=== PATIENT | female | born 1955 | race Caucasian/White ===

== ENCOUNTER 2023-06-09 20:26 | Inpatient (IN) | payer OTHER, SELFPAY ==
[2023-06-09 20:27] VITALS: BP 157/105; PULSE 94; RESP 18; TEMP 36.9; O2SAT 99; BMI 26.4
--- NOTE | 2023-06-09 20:33 | XRR_ITS ---
PROCEDURE INFORMATION: Exam: XR Chest Exam date and time: 06/09/2023 9:00 PM Age: 68 years old Clinical indication: Shortness of breath and other: Weakness; Patient HX: SOB; Chest congestion; Weakness; Copd; Smoker TECHNIQUE: Imaging protocol: Radiologic exam of the chest. Views: 1 view. COMPARISON: CR XR chest 2V* [id number] 01/18/2018 4:38 PM FINDINGS: Lungs: Lungs are hyperinflated. Clear parenchyma. Pleural spaces: No pleural effusion. No pneumothorax. Heart/Mediastinum: Cardiac silhouette is normal in size for technique. Vasculature: Tortuous aorta without dilation. Bones/joints: Prominent thoracic levoscoliosis. Old healed left-sided rib fractures. XR/XR chest 1V portable [id number] IMPRESSION: Hyperinflated but clear lungs. No other acute cardiopulmonary abnormality.
--- NOTE | 2023-06-09 20:33 | XRR_ITS ---
PROCEDURE INFORMATION: Exam: XR Abdomen Exam date and time: 06/09/2023 8:58 PM Age: 68 years old Clinical indication: Abdominal pain; Prior surgery; Surgery date: 6+ months; Surgery type: Hysterectomy; Patient HX: Epigastric pain; Constipation TECHNIQUE: Imaging protocol: Radiologic exam of the abdomen. Views: Frontal supine view of the abdomen. 1 View. COMPARISON: CR XR chest 2V* [id number] 01/18/2018 4:38 PM FINDINGS: Gastrointestinal tract: Gas noted in nondilated large and small bowel. No significant fecal retention appreciated. Bones/joints: Thoracolumbar junction levoscoliosis. No abnormal calcifications. XR/XR abdomen 1V* [id number] IMPRESSION: Nonobstructive bowel gas pattern. Gas in nondilated large and small bowel could be within normal limits for age, but ileus is not excluded.
--- NOTE | 2023-06-09 20:35 | W.ED.WEAKNES ---
HPI - Weakness General: Chief complaint: Weakness Stated complaint: WEAKNESS Time Seen by Provider: 06/09/23 20:28 History of Present Illness: Patient presents to the ER with complaints of being unable to eat and is sick all over and think she is dehydrated. Patient says she cracked a rib back in April and since has went downhill. Patient states she is constipated she thinks. Patient also states she has some GERD and feels like she needs to throw up at times but but has not. Review of Systems General: Reports: 10 or more systems reviewed and unremarkable except in HPI and below Physical Exam Const: COMMON NORMALS: no acute distress, average body habitus, patient oriented x3, no limitations, healthy appearing, alert and well nourished HENMT: COMMON NORMALS: normocephalic, atraumatic, hearing grossly normal bilaterally, external ears normal, Normal external nose present and moist oral mucous membranes HEAD & SCALP: normocephalic and atraumatic NOSE: Normal external nose present EXTERNAL EAR: Yes external ears normal Eye: COMMON NORMALS: Equal, round and reactive pupils present, EOMs intact bilaterally, conjunctivae normal and no scleral icterus CONJUNCTIVA: Yes conjunctivae normal PUPIL: Yes Equal, round and reactive pupils present Neck/C-Spine: COMMON NORMALS: full ROM, no lymphadenopathy, supple, no meningeal signs, no JVD and Thyroid normal THYROID: Thyroid normal Chest: COMMONS NORMALS: normal inspection of the chest and normal palpation of entire chest wall Resp: COMMON NORMALS: normal respiratory effort, No retractions, No use of accessory muscles and clear to auscultation bilaterally AUSCULTATION: clear to auscultation bilaterally Cardio: COMMON NORMALS: no JVD, regular rate, regular rhythm, S1 normal heart sound present, S2 normal heart sound present, No gallops present (Cardio), No clicks present (Cardio), No murmurs present (Cardio) and No rub (Cardio) RATE: regular rate RHYTHM: regular rhythm HEART SOUNDS: S1 normal heart sound present and S2 normal heart sound present GI: COMMON NORMALS: Normal to inspection, nondistended, normoactive bowel sounds present, Soft to palpation, non-tender, No hepatosplenomegaly present and no masses PALPATION: Yes Soft to palpation and Yes No hepatosplenomegaly present : COMMON NORMALS: Yes no CVA tenderness BLADDER/KIDNEY EXAM: Yes no CVA tenderness Back/Pelvis: COMMON NORMALS: no CVA tenderness Neuro: COMMON NORMALS: patient oriented x3 SENSORIUM/ORIENTATION: Yes alert MENINGEAL SIGNS: Yes no meningeal signs Course Vital Signs: Vital signs: Vital Signs Temperature 98.5 F 06/09/23 20:27 Pulse Rate 94 06/09/23 20:27 Respiratory Rate 18 06/09/23 20:27 Blood Pressure 157/105 06/09/23 20:27 Pulse Oximetry 99 06/09/23 20:27 Oxygen Delivery Me thod Room Air 06/09/23 20:27 MDM - Weakness Medical Decision Making Presents to the ER with complaints of generalized weakness. Patient states she been going downhill for months. Patient had lab work performed which showed her sodium of 123. Abdominal x-ray was nonspecific as well as a chest x-ray was negative. Dr. Jj was consulted who agreed to place the patient on MedSurg for further evaluation and treatment. Differential Diagnosis Unlikely acute myocardial infarction, anemia, hypoglycemia, hypothyroidism, rhabdomyolysis, sepsis or dehydration Medical Records I reviewed the patient's medical records. Lab Data I reviewed the patient's lab results. 06/09/23 20:54 06/09/23 20:54 Radiology Impressions Abdomen X-Ray 06/09/23 20:33 IMPRESSION: Nonobstructive bowel gas pattern. Gas in nondilated large and small bowel could be within normal limits for age, but ileus is not excluded. Chest X-Ray 06/09/23 20:33 IMPRESSION: Hyperinflated but clear lungs. No other acute cardiopulmonary abnormality. Laboratory Results WBC 9.77 10^3/uL (3.29-11.43) 06/09/23 20:54 RBC 4.34 10^6/uL (3.85-5.65) 06/09/23 20:54 Hgb 13.40 g/dL (11.27-16.99) 06/09/23 20:54 Hct 38.9 % (36-47) 06/09/23 20:54 MCV 89.6 fl (85-98) 06/09/23 20:54 MCH 30.9 pg (27-33) 06/09/23 20:54 MCHC 34.4 g/dL (30-55) 06/09/23 20:54 RDW 12.2 % (12.1-15.1) 06/09/23 20:54 Plt Count 275 10^3/cmm (157-399) 06/09/23 20:54 MPV 8.7 fL (7.4-10.4) 06/09/23 20:54 Neut % (Auto) 76.0 % 06/09/23 20:54 Lymph % (Auto) 15.1 % 06/09/23 20:54 Mills % (Auto) 7.8 % 06/09/23 20:54 Eos % (Auto) 0.3 % 06/09/23 20:54 Baso % (Auto) 0.6 % 06/09/23 20:54 Neut # (Auto) 7.42 10^3/uL (1.8-7.7) 06/09/23 20:54 Lymph # (Auto) 1.5 10^3/uL (0.8-4.8) 06/09/23 20:54 Mills # (Auto) 0.8 10^3/uL (0.2-0.9) 06/09/23 20:54 Eos # (Auto) 0.0 10^3/uL (0.0-0.8) 06/09/23 20:54 Baso # (Auto) 0.1 10^3/uL (0.0-0.1) 06/09/23 20:54 Nucleated RBC % (auto) 0 % 06/09/23 20:54 Nucleated RBCs # 0.0 /100WBC 06/09/23 20:54 Sodium 123 mmol/L (136-145) L 06/09/23 20:54 Potassium 3.9 mmol/L (3.5-5.1) 06/09/23 20:54 Chloride 89 mmol/L (98-107) L 06/09/23 20:54 Carbon Dioxide 24 mmol/L (22-29) 06/09/23 20:54 Anion Gap 13.9 (5-19) 06/09/23 20:54 BUN 6 mg/dL (8-23) L 06/09/23 20:54 Creatinine 0.6 mg/dL (0.5-0.9) 06/09/23 20:54 GFR Calculation 98.8 mL/min (90-130) 06/09/23 20:54 Glucose 104 mg/dL (65-115) 06/09/23 20:54 POC Glucose 118 mg/dL (70-110) H 06/09/23 20:38 Calculated Osmolality 254 mOsm/kg (285-295) L 06/09/23 20:54 Calcium 9.2 mg/dL (8.5-10.5) 06/09/23 20:54 Magnesium 1.9 mg/dL (1.7-2.3) 06/09/23 20:54 Total Bilirubin 0.5 mg/dL (0.15-1.2) 06/09/23 20:54 AST 18 U/L (0-32) 06/09/23 20:54 ALT 14 U/L (0-33) 06/09/23 20:54 Alkaline Phosphatase 91 U/L (35-105) 06/09/23 20:54 Total Protein 6.8 g/dL (6.6-8.7) 06/09/23 20:54 Albumin 4.2 g/dL (3.5-5.2) 06/09/23 20:54 Globulin 2.6 g/dL (1.3-4.6) 06/09/23 20:54 Urine Color Yellow (Yellow) 06/09/23 21:19 Urine Appearance Clear (CLEAR) 06/09/23 21:19 Urine pH 7 (5-7) 06/09/23 21:19 Ur Specific [place] 1.010 (1.005-1.030) 06/09/23 21:19 Urine Protein Neg (Negative) 06/09/23 21:19 Urine Glucose (UA) Norm (Normal) 06/09/23 21:19 Urine Ketones 1+ (Negative) H 06/09/23 21:19 Urine Blood Trace (Negative) H 06/09/23 21:19 Urine Nitrate Negative (Negative) 06/09/23 21:19 Urine Bilirubin Neg (Negative) 06/09/23 21:19 Urine Urobilinogen Neg mg/dL (Negative) 06/09/23 21:19 Ur Leukocyte Esterase Negative (Negative) 06/09/23 21:19 Urine RBC Rare /hpf (0-2) 06/09/23 21:19 Urine WBC None /hpf (0-5) 06/09/23 21:19 Ur Squamous Epith Cells None /hpf (0-5) 06/09/23 21:19 Amorphous Sediment Not Reportable 06/09/23 21:19 Urine Bacteria None /hpf (NONE) 06/09/23 21:19 All radiology interpretation(s) finalized by discharge EKG Data EKG 1: I personally reviewed and interpreted this EKG as follows: EKG interpretation date: 06/09/23 EKG interpretation time: 20:41 Prior EKG tracings: not available for review Interpretation: EKG shows ventricular rate 86 beats a minute, ID interval 185, QRS duration 98, QTc of 389, sinus rhythm, incomplete right bundle branch block, left anterior fascicular block, Discharge Plan Discharge Patient Disposition: Admitted As Inpatient Clinical Impression: Acute hyponatremia Condition: Stable Referrals: [facility] [Family Provider] - Coding Level of Care Code ED Assistant Professor Of Dietetics for Toni Noriega
--- NOTE | 2023-06-09 20:41 | ECG_ITS ---
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 Measurements Intervals [place] Rate: 86 P: 73 WI: 185 QRS: -72 QRSD: 98 T: 71 QT: 346 QTc: 415 Interpretive Statements SINUS RHYTHM INCOMPLETE RIGHT BUNDLE BRANCH BLOCK [90+ ms QRS DURATION, TERMINAL R IN V1/V2, 40+ ms S IN I/aVL/V4/V5/V6] LEFT ANTERIOR FASCICULAR BLOCK [QRS AXIS <= -45, QR IN I, RS IN II] MINIMAL VOLTAGE CRITERIA FOR LVH, CONSIDER NORMAL VARIANT [MEETS CRITERIA IN ONE OF: R(aVL), S(V1), R(V5), R(V5/V6)+S(V1)] POSSIBLE ANTERIOR MYOCARDIAL INFARCTION , OF INDETERMINATE AGE [30 ms Q WAVE IN V3/V4, OR R < 0.2 mV IN V4] Compared to ECG 01/18/2018 15:53:59 Myocardial infarct finding now present Electronically Signed On 06-10-2023 22:53:20 CDT by Tong Coffey M.D. [id number]
[2023-06-09 20:42] LABS: Glucose Point of Care 118 mg/dL (70-110)
[2023-06-09 21:06] LABS: Basophils # 0.1 10^3/uL (0.0-0.1); Basophils % 0.6 %; Eosinophils % 0.3 %; Hematocrit 38.9 % (36-47); Lymphocytes # 1.5 10^3/uL (0.8-4.8); Lymphocytes % 15.1 %; Mean Corpuscular HGB Conc 34.4 g/dL (30-55); Mean Corpuscular Hemoglobin 30.9 pg (27-33); Mean Corpuscular Volume 89.6 fl (85-98); Mean Platelet Volume 8.7 fL (7.4-10.4); Monocytes # 0.8 10^3/uL (0.2-0.9); Monocytes % 7.8 %; Neutrophils # 7.42 10^3/uL (1.8-7.7); Nucleated Red Blood Cells % 0 %; Platelet Count 275 10^3/cmm (157-399); Red Blood Count 4.34 10^6/uL (3.85-5.65); Red Cell Distribution Width 12.2 % (12.1-15.1); White Blood Count 9.77 10^3/uL (3.29-11.43)
[2023-06-09 21:09] VITALS: BP 158/94; PULSE 90; RESP 16; O2SAT 98
[2023-06-09] MEDS: sodium chloride 0.9% 1,000 ML 999 ML IV (21:09)
[2023-06-09 21:26] LABS: Alanine Aminotransferase 14 U/L (0-33); Albumin Level 4.2 g/dL (3.5-5.2); Alkaline Phosphatase 91 U/L (35-105); Anion Gap 13.9 (5-19); Aspartate Amino Transferase 18 U/L (0-32); Blood Urea Nitrogen 6 mg/dL (8-23); Calcium 9.2 mg/dL (8.5-10.5); Carbon Dioxide 24 mmol/L (22-29); Chloride 89 mmol/L (98-107); Creatinine Clr Calc Pharmacy 55.8651; Globulin 2.6 g/dL (1.3-4.6); Glomerular Filtration Rate 98.8 mL/min (90-130); Glucose 104 mg/dL (65-115); Magnesium 1.9 mg/dL (1.7-2.3); Osmolality Calculated 254 mOsm/kg (285-295); Potassium 3.9 mmol/L (3.5-5.1); Sodium 123 mmol/L (136-145); Total Bilirubin 0.5 mg/dL (0.15-1.2); Total Protein 6.8 g/dL (6.6-8.7)
[2023-06-09 21:39] VITALS: BP 157/82; PULSE 86; RESP 18; O2SAT 100
[2023-06-09 21:39] LABS: Add Urine Microscopic? YES; Bilirubin Urine Neg (Negative); Blood Urine Trace (Negative); Glucose Urine UA Norm (Normal); Ketones Urine 1+ (Negative); Leukocyte Esterase Urine Negative (Negative); Nitrate Urine Negative (Negative); Protein Urine Neg (Negative); RBC Urine RARE /hpf (0-2); Urine Appearance Clear (CLEAR); Urine Color Yellow (Yellow); Urobilinogen Urine Neg (Negative); pH Urine 7 (5-7)
[2023-06-09 21:40] LABS: Add Urine Culture? No
[2023-06-09 22:39] VITALS: BP 141/77; PULSE 91; RESP 16; O2SAT 99
[2023-06-10] VITALS (10 sets, daily range): BP systolic 104–163; BP diastolic 56–83; PULSE 67–85; RESP 15–19; TEMP 36.3–36.7; O2SAT 96–98
--- NOTE | 2023-06-10 00:50 | P.HP_ITS ---
Providers/Chief Complaint Admitting Physician: Eric Chino MD Chief Complaint: WEAKNESS History of Present Illness Geno Dimas is a 68 year old female with no significant past medical history, who presents to [facility] due to fatigue, malaise, nausea, feeling unwell, abdominal pain, lightheadedness, confusion. Currently patient is alert to person, to place, not to time she can follow commands, her complaint is just feeling sick she tells me, she feels sick all over her feet she feels nauseous, she feels dizzy, she is having abdominal pain, fatigue, malaise. She denies any dysuria, no hematuria. Denies any diarrhea. She does report poor appetite for the last few days. She reports feeling confused, not feeling her usual self, feeling weak all over, no chest pain, no cardiovascular history, no history of COPD, no history of smoking, no dysuria, no hematuria, patient gets most questions appropriately, but does have episodes of confusion, her response times are quite delayed, she denies any headaches, no blurry vision, Review of Systems Const: Reports: chills, body aches, fatigue and malaise; Denies: fever(s) Eyes: Denies: change in vision Card: Denies: chest pain Resp: Denies: dyspnea GI: Reports: abdominal pain and nausea; Denies: hematochezia : Denies: flank pain, difficulty voiding, dysuria or urinary frequency Musc: Denies: neck pain or back pain Skin/Breast: Denies: rash Neuro: Reports: dizziness and confusion; Denies: headache(s), numbness in extremities, weakness in extremities, Slurred speech present, difficulty communicating thoughts or involuntary movements Psych: Denies: anxiety Endo: Denies: polyuria or polydipsia Medications/Allergies Home Medications Medication Instructions Recorded Confirmed Last Taken Type No Known Home Medications 06/10/23 06/10/23 Unknown History Allergies Allergy/AdvReac Type Severity Reaction Status Date / Time bupropion [From Wellbutrin] Allergy ADR-Irritab Verified 06/09/23 20:42 le nitrofurantoin Allergy ADR-Gastrointestinal Verified 06/09/23 20:42 [From Macrodantin] Upset tetracycline Allergy Unknown Verified 06/09/23 20:42 PFSH Acute PFSH: Medical History (Updated 06/10/23 @ 00:55 by Eric Chino MD) No pertinent past medical history Surgical History (Updated 06/10/23 @ 00:53 by Eric Chino MD) History of appendectomy History of hysterectomy Family History (Updated 06/10/23 @ 00:53 by Eric Chino MD) Other No pertinent family history Social History (Updated 06/10/23 @ 00:53 by Eric Chino MD) Smoking and tobacco status: never smoked Alcohol intake: never Substance/Drug Use: never Vitals/I&O/Wt Last Vital Signs Temp 98.5 F 06/09/23 20:27 Pulse 71 06/10/23 00:05 Resp 18 06/10/23 00:05 BP 163/82 06/10/23 00:05 Pulse Ox 98 06/10/23 00:05 O2 Del Method Room Air 06/10/23 00:23 06/09/23 06/09/23 06/10/23 14:59 22:59 06:59 Intake Total 1000 / 1000 Balance 1000 / 1000 Weight last 48 hrs Weight 63.503 kg Physical Exam Const: COMMON NORMALS: no acute distress GENERAL APPEARANCE: cooperative, well kempt and well developed ORIENTATION/CONSCIOUSNESS: Yes awake, Yes oriented to person, Yes oriented to place and Yes confused; not oriented to time HENMT: COMMON NORMALS: normocephalic and Normal external nose present HEAD & SCALP: normocephalic FACE & SINUS: normal facial exam NOSE: Normal external nose present Eye: COMMON NORMALS: Equal, round and reactive pupils present, EOMs intact bilaterally, conjunctivae normal and no scleral icterus CONJUNCTIVA: Yes conjunctivae normal PUPIL: Yes Equal, round and reactive pupils present Neck/C-Spine: COMMON NORMALS: full ROM, no lymphadenopathy, no meningeal signs and no JVD Lymph: LYMPHATIC: no lymphadenopathy noted Chest: COMMONS NORMALS: normal inspection of the chest Resp: COMMON NORMALS: normal respiratory effort, No retractions, No use of accessory muscles and clear to auscultation bilaterally AUSCULTATION: clear to auscultation bilaterally Cardio: COMMON NORMALS: regular rate, regular rhythm, S1 normal heart sound present, S2 normal heart sound present, No murmurs present (Cardio) and Peripheral pulses 2+ throughout RATE: regular rate RHYTHM: regular rhythm HEART SOUNDS: S1 normal heart sound present and S2 normal heart sound present PERIPHERAL PULSES: Peripheral pulses 2+ throughout GI: COMMON NORMALS: Normal to inspection, nondistended, normoactive bowel sounds present, Soft to palpation and non-tender : BLADDER/KIDNEY EXAM: Yes no CVA tenderness Back/Pelvis: COMMON NORMALS: no CVA tenderness Extremity: COMMON NORMALS: no calf tenderness and no pedal edema Neuro: COMMON NORMALS: CN's II-XII intact bilaterally, moves all extremities, no focal motor deficits and no sensory deficits noted MENINGEAL SIGNS: Yes no meningeal signs Psych: COMMON NORMALS: mental status grossly normal, cooperative and speech normal SPEECH: Yes normal speech THOUGHT PROCESS: Normal thought process present Skin: COMMON NORMALS: turgor normal and no jaundice GENERAL SKIN EXAM: turgor normal Data 06/09/23 20:54 06/09/23 20:54 A&P Assessment and plan (1) Acute hyponatremia: (2) Acute encephalopathy: (3) Generalized weakness: (4) Fatigue: (5) Nausea: Plan Acute hyponatremia -Likely secondary to poor appetite, dehydration -Recheck serum sodium levels at 4 AM -IV fluids Generalized weakness, fatigue, malaise, feeling sick -Etiology unclear -Order inflammatory markers Nausea, vomiting, abdominal discomfort -CT scan abdomen pelvis, lipase, inflammatory markers Acute encephalopathy -Low second hyponatremia, will do CT of the head We will have to call the [facility] tomorrow, for a list of patient's medications, Full code Overnight for DVT prophylaxis Attestations Medical Necessity Statement*: Patient requires hospitalization, outpatient with observation, for hyponatremia, encephalopathy, generalized weakness, fatigue, malaise, nausea Diagnoses Acute hyponatremia E87.1 Acute encephalopathy G93.40 Generalized weakness R53.1 Fatigue R53.83 Nausea R11.0
--- NOTE | 2023-06-10 01:02 | CTR_ITS ---
PROCEDURE INFORMATION: Exam: CT Abdomen And Pelvis Without Contrast Exam date and time: 06/10/2023 2:37 AM Age: 68 years old Clinical indication: Nausea and vomiting; Prior surgery; Surgery date: 6+ months; Surgery type: Appy. Hysterectomy; Patient HX: General weakness with n/v and loss of appetite. ; Additional info: N/v/poor appeptite TECHNIQUE: Imaging protocol: Computed tomography of the abdomen and pelvis without contrast. Radiation optimization: All CT scans at this facility use at least one of these dose optimization techniques: automated exposure control; mA and/or kV adjustment per patient size (includes targeted exams where dose is matched to clinical indication); or iterative reconstruction. REPORTING DATA: Count of CT and Cardiac NM exams in prior 12 months: This patient has received 0 known CTs and 0 known cardiac nuclear medicine studies in the 12 months prior to the current study. COMPARISON: CR XR abdomen 1V* [id number] 06/09/2023 8:58 PM RADIATION DOSE METRICS: Total DLP (mGy-cm): 309.62 FINDINGS: Lungs: Left lower lobe volume loss and opacification suggests severe atelectasis. Pleural spaces: No pleural fluid or pneumothorax. Heart: Heart size is normal. Liver: Normal configuration. Homogeneous parenchyma. Gallbladder and bile ducts: No regional inflammation. No calcified stones. No ductal dilation. Pancreas: No pancreatic edema. No obvious pancreatic mass, but sensitivity is limited without intravenous contrast. Spleen: Normal size spleen with scattered calcifications. Adrenal glands: 3.6 x 3.0 cm solid left adrenal mass demonstrates attenuation coefficient 30 Hounsfield units. Kidneys and ureters: On this noncontrast exam, interpretation of renal parenchyma is challenging. There is a solid appearing exophytic nodule arising from the left kidney measuring 2.3 cm in diameter. Renal contours are otherwise within normal limits. Stomach and bowel: Postprandial stomach. Normal caliber small bowel. Distal colonic diverticulosis without evidence of acute diverticulitis. Appendix: Appendix is not visualized as a discrete structure but there is no inflammation at the cecal base. Intraperitoneal space: No free air. No significant fluid collection. Vasculature: Moderate aortoiliac calcific atherosclerosis without aneurysm. Lymph nodes: No enlarged lymph nodes. Urinary bladder: Unremarkable as visualized. Reproductive: Prior hysterectomy. No evidence of vaginal cuff or adnexal mass. Bones/joints: Severe subjective bony demineralization. Old healed left-sided rib fractures are noted. There are multiple chronic appearing superior endplate deformities throughout the visualized spine compatible with osteoporotic insufficiency fractures. No acute fracture is evident. No destructive bony lesions are appreciated. Soft tissues: Bilateral breast prostheses are noted. CT/CT abdomen pelvis wo con [id number] IMPRESSION: 1. Overall exam sensitivity is limited without intravenous contrast. There is a suspicious exophytic nodule in the upper pole of the left kidney which may be renal cell carcinoma. There is also a left adrenal mass. If patient's renal function is not adequate for investigation with intravenous contrast, ultrasound may be helpful in this thin patient. 2. Severe left lower lobe atelectasis was not appreciated on plain film. In this patient with emphysema, possibility of left hilar mass cannot be entirely excluded. Contrast enhanced chest CT would be helpful for further evaluation if clinical scenario is unresolved.
--- NOTE | 2023-06-10 01:02 | CTR_ITS ---
PROCEDURE INFORMATION: Exam: CT Head Without Contrast Exam date and time: 06/10/2023 2:35 AM Age: 68 years old Clinical indication: Other: General weakness; Additional info: Encephalopatrhy TECHNIQUE: Imaging protocol: Computed tomography of the head without contrast. Radiation optimization: All CT scans at this facility use at least one of these dose optimization techniques: automated exposure control; mA and/or kV adjustment per patient size (includes targeted exams where dose is matched to clinical indication); or iterative reconstruction. REPORTING DATA: Count of CT and Cardiac NM exams in prior 12 months: This patient has received 0 known CTs and 0 known cardiac nuclear medicine studies in the 12 months prior to the current study. COMPARISON: No relevant prior studies available. RADIATION DOSE METRICS: Total DLP (mGy-cm): 1021.73 FINDINGS: Brain: Multiple circumscribed low-density masses are seen throughout the brain. Reference lesion in the right thalamus measures 1.3 cm in diameter. There are prominent lesions in the left thalamus, left parietal lobe white matter, left frontal lobe, and a bilobed lesion in the left posterior frontal lobe. Additional much smaller lesions are scattered throughout. No intraparenchymal or extra-axial hemorrhage. No midline shift. No significant edema surrounding any of the focal lesions. Cerebral ventricles: No ventriculomegaly. Paranasal sinuses: Mucosal thickening noted in the ethmoid air cells. Visualized paranasal sinuses are otherwise clear. Mastoid air cells: Visualized mastoid air cells are well aerated. Bones/joints: Unremarkable. No acute fracture. Soft tissues: Unremarkable. CT/CT head wo con* [id number] IMPRESSION: There are multiple low-attenuation lesions throughout the brain. Differential diagnosis includes metastatic disease or disseminated infection. There is no significant edema surrounding any of the lesions, and there is no evidence of hemorrhage or herniation. Contrast enhanced brain MR is recommended for further characterization.
[2023-06-10] MEDS: sodium chloride 0.9% 1,000 ML 75 ML IV ×2 (01:24→15:10)
[2023-06-10] MEDS: enoxaparin 40 mg/0.4 mL Syringe SUBCUT (01:25)
[2023-06-10] MEDS: pantoprazole 40 mg SDV IVP (01:25)
[2023-06-10 02:11] LABS: Troponin(5th) Baseline 11 ng/L (0-10)
--- NOTE | 2023-06-10 03:09 | ECG_ITS ---
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 Measurements Intervals [place] Rate: 84 P: 63 NV: 184 QRS: -65 QRSD: 96 T: 51 QT: 350 QTc: 416 Interpretive Statements SINUS RHYTHM LEFT AXIS DEVIATION [QRS AXIS < -30] PATTERN CONSISTENT WITH PULMONARY DISEASE INCOMPLETE RIGHT BUNDLE BRANCH BLOCK [90+ ms QRS DURATION, TERMINAL R IN V1/V2, 40+ ms S IN I/aVL/V4/V5/V6] POSSIBLE SEPTAL MYOCARDIAL INFARCTION , OF INDETERMINATE AGE [30 ms Q WAVE IN V1/V2] MODERATE T-WAVE ABNORMALITY, CONSIDER ANTERIOR ISCHEMIA [-0.1+ mV T-WAVE IN V3/V4] Compared to ECG 06/09/2023 20:41:13 Left-axis deviation now present T-wave abnormality now present Possible ischemia now present Left anterior fascicular block no longer present Myocardial infarct finding still present Electronically Signed On 06-10-2023 22:58:23 CDT by Tong Coffey M.D. [id number]
[2023-06-10 03:24] LABS: Erythrocyte Sedimentation Rate 7 mm/hr (0-15)
[2023-06-10 03:43] LABS: Blood Urea Nitrogen 5 mg/dL (8-23); Calcium 8.8 mg/dL (8.5-10.5); Carbon Dioxide 21 mmol/L (22-29); Chloride 95 mmol/L (98-107); Creatinine Clr Calc Pharmacy 55.8651; Glucose 86 mg/dL (65-115); Lipase 87 U/L (13-60); Osmolality Calculated 263 mOsm/kg (285-295); Sodium 128 mmol/L (136-145)
[2023-06-10 03:49] LABS: Procalcitonin 0.39 ng/mL (0-0.5)
--- NOTE | 2023-06-10 06:44 | ECG_ITS ---
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 Measurements Intervals [place] Rate: 67 P: 58 WV: 193 QRS: -71 QRSD: 104 T: 47 QT: 392 QTc: 414 Interpretive Statements SINUS RHYTHM INCOMPLETE RIGHT BUNDLE BRANCH BLOCK [90+ ms QRS DURATION, TERMINAL R IN V1/V2, 40+ ms S IN I/aVL/V4/V5/V6] LEFT ANTERIOR FASCICULAR BLOCK [QRS AXIS <= -45, QR IN I, RS IN II] POSSIBLE ANTERIOR MYOCARDIAL INFARCTION , OF INDETERMINATE AGE [30 ms Q WAVE IN V3/V4, OR R < 0.2 mV IN V4] Compared to ECG 06/10/2023 03:09:52 Left anterior fascicular block now present Left-axis deviation no longer present T-wave abnormality no longer present Possible ischemia no longer present Myocardial infarct finding still present Electronically Signed On 06-10-2023 22:58:02 CDT by Tong Coffey M.D. [id number]
[2023-06-10 06:55] LABS: Troponin 5 6HR 10.34 ng/L (0-10)
[2023-06-10 07:06] LABS: Troponin 5 6HR Delta -0.66 ng/L (0-12)
[2023-06-10 12:41] LABS: Iron 38 ug/dL (37-145); Thyroid Stimulating Hormone 0.75 uIU/mL (0.27-4.20); Total Iron Binding Capacity 190 mcg/dl; Unsaturated Iron Binding 152 ug/dL (112-347)
--- NOTE | 2023-06-10 13:16 | PC.OT ---
NURSING STAFF NOTIFIED THERAPIST THAT SHE IS AWAITING TO TALK TO HER PHYSICIAN AND IS TIRED AND HAS BEEN REQUESTING TO REST. ATTEMPTED TO SEE HER AGAIN AT LUNCH BUT PATIENT HAD VISITORS. OT TO HOLD EVAL TODAY .
--- NOTE | 2023-06-10 14:29 | P.PN_ITS ---
Subjective Subjective: Admitted overnight. On examination patient seen with caregiver at bedside. Patient is awake and alert. States feeling better. Denies any nausea, vomiting, headache. States she has not seen a doctor in last 5 years. She states she thinks she broke her back around 6 weeks ago. She states she has a tendency of breaking her bones very frequently since she was a kid. Also states she thinks her sodium levels were low and even with all the natural medication which she takes at home the sodium levels were not improving so she came to the ER for weakness. Blood work appreciated for a stable CBC without leukocytosis, sodium level improving to 128, 123 on admission, chloride of 95 with a normal creatinine. Vitals/I&O/Wt Last Vital Signs Temp 98.1 F 06/10/23 12:00 Pulse 67 06/10/23 12:00 Resp 16 06/10/23 12:00 BP 122/70 06/10/23 12:00 Pulse Ox 96 06/10/23 12:00 O2 Del Method Room Air 06/10/23 12:00 06/09/23 06/10/23 06/10/23 22:59 06:59 14:59 Intake Total 1000 / 1000 240 / 240 Output Total 400 / 400 Balance 1000 / 1000 -400 / 600 240 / 240 Weight last 48 hrs Weight 63.503 kg Physical Exam Const: COMMON NORMALS: no acute distress GENERAL APPEARANCE: cooperative, well kempt and well developed ORIENTATION/CONSCIOUSNESS: Yes awake, Yes oriented to person, Yes oriented to place and Yes confused; not oriented to time HENMT: COMMON NORMALS: normocephalic and Normal external nose present HEAD & SCALP: normocephalic FACE & SINUS: normal facial exam NOSE: Normal external nose present Eye: COMMON NORMALS: Equal, round and reactive pupils present, EOMs intact bilaterally, conjunctivae normal and no scleral icterus CONJUNCTIVA: Yes conjunctivae normal PUPIL: Yes Equal, round and reactive pupils present Neck/C-Spine: COMMON NORMALS: full ROM, no lymphadenopathy, no meningeal signs and no JVD Lymph: LYMPHATIC: no lymphadenopathy noted Chest: COMMONS NORMALS: normal inspection of the chest Resp: COMMON NORMALS: normal respiratory effort, No retractions, No use of accessory muscles and clear to auscultation bilaterally AUSCULTATION: clear to auscultation bilaterally Cardio: COMMON NORMALS: no JVD, regular rate, regular rhythm, S1 normal heart sound present, S2 normal heart sound present, No murmurs present (Cardio) and Peripheral pulses 2+ throughout RATE: regular rate RHYTHM: regular rhythm HEART SOUNDS: S1 normal heart sound present and S2 normal heart sound present PERIPHERAL PULSES: Peripheral pulses 2+ throughout GI: COMMON NORMALS: Normal to inspection, nondistended, normoactive bowel sounds present, Soft to palpation and non-tender PALPATION: Yes Soft to palpation : COMMON NORMALS: Yes no CVA tenderness BLADDER/KIDNEY EXAM: Yes no CVA tenderness Back/Pelvis: COMMON NORMALS: no CVA tenderness Extremity: COMMON NORMALS: no calf tenderness and no pedal edema Neuro: COMMON NORMALS: CN's II-XII intact bilaterally, moves all extremities, no focal motor deficits and no sensory deficits noted SENSORIUM/ORIENTATION: Yes oriented to person, Yes oriented to place and No oriented to time MENINGEAL SIGNS: Yes no meningeal signs Psych: COMMON NORMALS: mental status grossly normal, Normal thought process present, cooperative and speech normal APPEARANCE: Yes well kempt SPEECH: Yes normal speech THOUGHT PROCESS: Normal thought process present Skin: COMMON NORMALS: turgor normal and no jaundice GENERAL SKIN EXAM: turgor normal Data 06/09/23 20:54 06/10/23 02:54 A&P Assessment and plan (1) Acute hyponatremia: (2) Acute encephalopathy: (3) Generalized weakness: (4) Fatigue: (5) Nausea: Plan Acute hyponatremia: Do not have baseline. Seems to be improving. Up to 128. -Likely secondary to poor appetite, dehydration Continue with normal saline 75 cc/h. Recheck sodium level in afternoon and then in AM. Monitor for overcorrection. Generalized weakness, fatigue, malaise, feeling sick: Acute encephalopathy: Resolving. Most likely in setting of acute hyponatremia. Cannot rule out in setting of possible malignancy. Respiratory viral panel pending. Check TSH, vitamin B12, folate levels, TIBC. Nausea/vomiting/abdominal discomfort: Appreciate CT abdomen pelvis results. No concerns for small bowel obstruction, pancreatitis, negative for liver patho logy. Does complain of constipation. Start on bowel regimen with senna Colace twice daily and milk of mag as needed. Left renal mass: Seen on the CT scan with concerns for exophytic mass on left upper renal pole with possible localized metastasis to adrenals. Discussed in detail with the patient. We need to follow-up with nephrology as an outpatient for possible renal biopsy. Patient would think further regarding her plans. Full code Regular diet Lovenox for DVT prophylaxis Protonix for PUD prophylaxis Attestations Medical Necessity Statement*: Requires further hospitalization for management of acute hyponatremia in setting of dehydration requiring IV fluids as patient is not able to maintain oral hydration given nausea and vomiting which seems to be resolving. Switch to inpatient Diagnoses Acute hyponatremia E87.1 Acute encephalopathy G93.40 Generalized weakness R53.1 Fatigue R53.83 Nausea R11.0
[2023-06-10 15:24] LABS: Sodium 129 mmol/L (136-145)
--- NOTE | 2023-06-10 15:32 | PC.NURSE ---
Pt refuses telemetry.
[2023-06-10] MEDS: sennosides-docusate Tablet 1 TAB PO (17:32)
[2023-06-11] MEDS: enoxaparin 40 mg/0.4 mL Syringe SUBCUT (01:41)
[2023-06-11] MEDS: pantoprazole 40 mg SDV IVP (01:41)
[2023-06-11 04:28] VITALS: BP 132/74; PULSE 82; RESP 20; TEMP 36.6; O2SAT 99
[2023-06-11] MEDS: sodium chloride 0.9% 1,000 ML 75 ML IV (05:26)
[2023-06-11 05:29] LABS: Basophils # 0.1 10^3/uL (0.0-0.1); Basophils % 0.8 %; Eosinophils # 0.1 10^3/uL (0.0-0.8); Eosinophils % 0.8 %; Hematocrit 37.7 % (36-47); Lymphocytes # 1.7 10^3/uL (0.8-4.8); Lymphocytes % 20.3 %; Mean Corpuscular HGB Conc 33.7 g/dL (30-55); Mean Corpuscular Hemoglobin 30.8 pg (27-33); Mean Corpuscular Volume 91.5 fl (85-98); Mean Platelet Volume 9.4 fL (7.4-10.4); Monocytes # 0.7 10^3/uL (0.2-0.9); Monocytes % 8.6 %; Neutrophils # 5.79 10^3/uL (1.8-7.7); Neutrophils % 69.4 %; Nucleated Red Blood Cells % 0 %; Platelet Count 227 10^3/cmm (157-399); Red Blood Count 4.12 10^6/uL (3.85-5.65); Red Cell Distribution Width 12.4 % (12.1-15.1); White Blood Count 8.36 10^3/uL (3.29-11.43)
[2023-06-11 05:49] LABS: Estmated Average Glucose 105; Hemoglobin A1C 5.3 % (4.0-6.0)
[2023-06-11 05:56] LABS: Alanine Aminotransferase 12 U/L (0-33); Albumin Level 3.8 g/dL (3.5-5.2); Alkaline Phosphatase 84 U/L (35-105); Anion Gap 11.5 (5-19); Aspartate Amino Transferase 18 U/L (0-32); Blood Urea Nitrogen 3 mg/dL (8-23); Calcium 8.8 mg/dL (8.5-10.5); Carbon Dioxide 23 mmol/L (22-29); Chloride 95 mmol/L (98-107); Globulin 2.4 g/dL (1.3-4.6); Glomerular Filtration Rate 157.8 mL/min (90-130); Glucose 103 mg/dL (65-115); Osmolality Calculated 259 mOsm/kg (285-295); Potassium 3.5 mmol/L (3.5-5.1); Sodium 126 mmol/L (136-145); Total Bilirubin 0.4 mg/dL (0.15-1.2); Total Protein 6.2 g/dL (6.6-8.7)
[2023-06-11 05:57] LABS: Cholesterol 178 mg/dL (0-200); Creatinine Clr Calc Pharmacy 55.8651; HDL Cholesterol 66 mg/dL (60-100); LDL Cholesterol Calculated 98 mg/dL (50-129); Triglycerides 72 mg/dL (0-150); VLDL Cholestrol Calculation 14 mg/dL (0-30)
[2023-06-11 06:48] LABS: Folate Level > 20.0 ng/mL (4.8-37.3)
[2023-06-11 08:00] VITALS: BP 150/76; PULSE 95; RESP 18; TEMP 36.7; O2SAT 96
[2023-06-11] MEDS: sennosides-docusate Tablet 1 TAB PO ×2 (08:55→18:05)
[2023-06-11 11:50] VITALS: PULSE 101; RESP 20; O2SAT 96
[2023-06-11 15:28] LABS: Sodium 129 mmol/L (136-145)
[2023-06-11 16:00] VITALS: BP 154/94; PULSE 83; RESP 16; TEMP 36.8; O2SAT 95
--- NOTE | 2023-06-11 17:13 | PC.OT ---
OT eval attempted . Patient is concerned about her recent abdominal CA diagnosis and concerned about the sodium levels. OT eval on hold.
[2023-06-11] MEDS: polyethylene glycol 3350 Pkt 17 gm PO (18:05)
[2023-06-11] MEDS: sodium chloride 1 gm Tablet PO (18:18)
[2023-06-11] MEDS: sodium chloride 0.9% 1,000 ML 30 ML IV (18:18)
--- NOTE | 2023-06-11 19:15 | P.PN_ITS ---
Subjective Subjective: She has not been able to eat due to forgetting her dentures, has been unable to tolerate regular consistency food. States at home had some pain in the posterior right rib cage due to that had spent time in bed, did not eat well during that time, but continue to drink water. Lives by herself. Does not have any family. Has had her neighbors check up on her occasionally, but they have been ill with COVID. Additionally has been having constipation. Vitals/I&O/Wt Last Vital Signs Temp 98.2 F 06/11/23 16:00 Pulse 83 06/11/23 16:00 Resp 16 06/11/23 16:00 BP 154/94 06/11/23 16:00 Pulse Ox 95 06/11/23 16:00 O2 Del Method Room Air 06/11/23 16:00 06/11/23 06/11/23 06/11/23 06:59 14:59 22:59 Intake Total 1000 / 2240 976.25 / 976.25 480 / 1456.25 Balance 1000 / 2240 976.25 / 976.25 480 / 1456.25 Weight last 48 hrs Weight 63.503 kg Physical Exam Const: COMMON NORMALS: alert GENERAL APPEARANCE: cooperative ORIENTATI ON/CONSCIOUSNESS: Yes awake OTHER: Anxious HENMT: COMMON NORMALS: oropharynx normal OTHER: dry MM Neck/C-Spine: COMMON NORMALS: no JVD Resp: COMMON NORMALS: normal respiratory effort and clear to auscultation bilaterally AUSCULTATION: clear to auscultation bilaterally Cardio: COMMON NORMALS: no JVD, regular rhythm, S1 normal heart sound present, S2 normal heart sound present and No murmurs present (Cardio) RHYTHM: regular rhythm HEART SOUNDS: S1 normal heart sound present and S2 normal heart sound present GI: COMMON NORMALS: Normal to inspection, nondistended, normoactive bowel sounds present, Soft to palpation and non-tender PALPATION: Yes Soft to palpation Extremity: COMMON NORMALS: no joint enlargement and no pedal edema Neuro: COMMON NORMALS: moves all extremities SENSORIUM/ORIENTATION: Yes alert Skin: COMMON NORMALS: no rashes or lesions noted GENERAL SKIN EXAM: no rash es or lesions noted OTHER: loss of skin turgor Data 06/11/23 05:05 06/11/23 14:42 A&P Assessment and plan (1) Acute hyponatremia: (2) Acute encephalopathy: (3) Generalized weakness: (4) Fatigue: (5) Nausea: Plan Acute hyponatremia: Worsening sodium today down to 126. She has had poor appetite recently although continues to drink water. Currently is feeling somewhat dry, somewhat dry mouth, loss of skin turgor. Her IV stopped functioning. New IV obtained. Resuming lower rate saline infusion. Started on NaCl by mouth as she states she normally does take more salt with her food. follow-up sodium requested. At risk of overcorrection. Generalized weakness, fatigue, malaise, feeling sick: Has been feeling generally weak. Acute encephalopathy: Resolving. Most likely in setting of acute hyponatremia. Cannot rule out in setting of possible malignancy. Respiratory viral panel has been ordered. reviewedTSH noted wnl, reviewed vitamin B12 - pending, folate levels - not low. reviewed iron studies, without iron deficiency. Nausea/vomiting/abdominal discomfort: ReviewedCT abdomen pelvis results. No concerns for small bowel obstruction, pancreatitis, negative for liver pathology. Constipation: Persists. Escalate bowel regimen, add MiraLAX. Left renal and adrenal mass: Seen on the CT scan with concerns for exophytic mass on left upper renal pole with possible localized metastasis to adrenals. Follow-up with nephrology/urology as an outpatient for possible renal biopsy. So far she is agreeable to follow-up. Discussed with case management. Additionally she states she is [facility], and also has difficulties with transportation. Full code Regular diet Lovenox for DVT prophylaxis Protonix for PUD prophylaxis Attestations Medical Necessity Statement*: Continue admission for assessment management of symptomatic hyponatremia, suspected chronic, with worsening sodium this morning. At risk of overcorrection. and High MDM includes amount and/or complexity of data reviewed/ordered [ resulted lab(s)/test(s), ordered lab(s)/test(s) and other healthcare professional discussion] and described risk of complication, morbidity or mortality of management as documented Diagnoses Acute hyponatremia E87.1 Acute encephalopathy G93.40 Generalized weakness R53.1 Fatigue R53.83 Nausea R11.0
[2023-06-11 20:24] LABS: Sodium 130 mmol/L (136-145)
[2023-06-11 20:30] VITALS: BP 153/50; PULSE 79; RESP 19; TEMP 36.6; O2SAT 96
[2023-06-12] VITALS: BP 145/77; PULSE 81; RESP 19; TEMP 36.8; O2SAT 96
[2023-06-12] MEDS: enoxaparin 40 mg/0.4 mL Syringe SUBCUT (00:16)
[2023-06-12] MEDS: pantoprazole 40 mg SDV IVP (01:16)
[2023-06-12 02:29] LABS: Vitamin B12 (Cobalamin) 803 pg/mL (200-1100)
[2023-06-12 04:06] VITALS: BP 165/91; PULSE 68; RESP 21; TEMP 36.6; O2SAT 96
[2023-06-12 06:32] LABS: Anion Gap 15.2 (5-19); Blood Urea Nitrogen 5 mg/dL (8-23); Calcium 9.1 mg/dL (8.5-10.5); Carbon Dioxide 22 mmol/L (22-29); Chloride 98 mmol/L (98-107); Creatinine Clr Calc Pharmacy 55.8651; Glomerular Filtration Rate 98.8 mL/min (90-130); Glucose 103 mg/dL (65-115); Osmolality Calculated 270 mOsm/kg (285-295); Potassium 4.2 mmol/L (3.5-5.1); Sodium 131 mmol/L (136-145)
[2023-06-12 08:00] VITALS: BP 156/84; PULSE 79; RESP 16; TEMP 36.7; O2SAT 96
[2023-06-12] MEDS: polyethylene glycol 3350 Pkt 17 gm PO (10:33)
[2023-06-12] MEDS: sennosides-docusate Tablet 1 TAB PO (10:35)
[2023-06-12] MEDS: sodium chloride 1 gm Tablet PO (10:36)
[2023-06-12 11:46] VITALS: BP 154/83; PULSE 83; RESP 17; TEMP 36.8; O2SAT 97
--- NOTE | 2023-06-12 12:06 | PM.DCS ---
Discharge Providers Date of Admission: 06/10/23 12:01 Date of Discharge: June 12, 2023 Attending Provider at Admission: Eric Chino MD Attending Provider at Discharge: Jorge Pace Diagnoses at Discharge Discharge Diagnosis (1) Acute hyponatremia: Status: Acute (2) Acute encephalopathy: Status: Acute (3) Generalized weakness: Status: Acute (4) Fatigue: Status: Acute (5) Nausea: Status: Acute Reason for Visit Reason for Visit: WEAKNESS Hospital Course Hospital Course Pleasant 68-year-old lady lost to [facility], stopped taking her medications, was admitted for additional assessment due to fatigue, malaise, nausea, feeling unwell, abdominal pain, lightheadedness, confusion, on presentation with noted hyponatremia 123, with CT head concerning for multiple low-attenuation lesions throughout the brain, possibly metastatic disease or disseminated infection on differential, although she remained afebrile, without leukocytosis, without signs of infection. Chest x-ray with hyperinflated lungs but clear, no cardiomegaly. Abdominal x-ray with nonobstructive bowel gas pattern, gas in nondilated large and small bowel could be within normal limits for age but ileus is not excluded. She had no signs of obstruction clinically. She did note she has had poor appetite recently but continue to make herself drink water. This may explain hyponatremia with reduced oral intake. She was somewhat dehydrated, received IV hydration on presentation. Subsequently resumed on regular diet, sodium chloride tablets, protein supplements. Sodium gradually increased up to 131. She did have additional imaging with CT abdomen pelvis which showed suspicious exophytic nodule of 2.3 cm in upper pole of the left kidney may be renal cell carcinoma. Additionally left adrenal mass 3.6 x [address] also noted severe left lower lobe atelectasis, possibility of left hilar mass cannot be entirely excluded. These findings can be further evaluated with contrast-enhanced MRI brain for findings on head CT, as well as contrast-enhanced CT for findings in the chest and abdomen. Please refer for additional work-up depending on her goals of care. For now she states that she intends to maintain follow-up. Home health care is requested to check up on her at home, assistance with medications, reassessment, resource assistance, transportation, among others. Physical Exam Const: COMMON NORMALS: patient oriented x3 and alert GENERAL APPEARANCE: cooperative ORIENTATION/CONSCIOUSNESS: Yes awake HENMT: COMMON NORMALS: oropharynx normal Neck/C-Spine: COMMON NORMALS: no JVD Resp: COMMON NORMALS: normal respiratory effort and clear to auscultation bilaterally AUSCULTATION: clear to auscultation bilaterally Cardio: COMMON NORMALS: no JVD, regular rhythm, S1 normal heart sound present, S2 normal heart sound present and No murmurs present (Cardio) RHYTHM: regular rhythm HEART SOUNDS: S1 normal heart sound present and S2 normal heart sound present GI: COMMON NORMALS: Normal to inspection, nondistended, normoactive bowel sounds present, Soft to palpation and non-tender PALPATION: Yes Soft to palpation Extremity: COMMON NORMALS: no joint enlargement and no pedal edema Neuro: COMMON NORMALS: patient oriented x3 and moves all extremities SENSORIUM/ORIENTATION: Yes alert Skin: COMMON NORMALS: no rashes or lesions noted GENERAL SKIN EXAM: no rashes or lesions noted Discharge Data Studies Completed and Pending Completed Studies During Hospitalization Category Date Time Status CT abdomen pelvis wo con [id number] Routine Cat Scan 06/10/23 01:[address] head wo con* [id number] Routine Cat Scan 06/10/23 01:02 Completed XR abdomen 1V* [id number] Stat Exams 06/09/23 20:33 Completed XR chest 1V portable [id number] Stat Exams 06/09/23 20:33 Completed Pending at discharge Category Date Time Status Basic Metabolic Panel AM LABS Lab 06/13/23 04:00 Ordered Basic Metabolic Panel AM LABS Lab 06/14/23 04:00 Ordered MAG [Magnesium] AM LABS Lab 06/13/23 04:00 Ordered Respiratory Panel 2 Routine Lab 06/10/23 01:36 Ordered Radiology Impressions Abdomen X-Ray 06/09/23 20:33 IMPRESSION: Nonobstructive bowel gas pattern. Gas in nondilated large and small bowel could be within normal limits for age, but ileus is not excluded. Chest X-Ray 06/09/23 20:33 IMPRESSION: Hyperinflated but clear lungs. No other acute cardiopulmonary abnormality. Abdomen/Pelvis CT 06/10/23 01:02 IMPRESSION: 1. Overall exam sensitivity is limited without intravenous contrast. There is a suspicious exophytic nodule in the upper pole of the left kidney which may be renal cell carcinoma. There is also a left adrenal mass. If patient's renal function is not adequate for investigation with intravenous contrast, ultrasound may be helpful in this thin patient. 2. Severe left lower lobe atelectasis was not appreciated on plain film. In this patient with emphysema, possibility of left hilar mass cannot be entirely excluded. Contrast enhanced chest CT would be helpful for further evaluation if clinical scenario is unresolved. Head CT 06/10/23 01:02 IMPRESSION: There are multiple low-attenuation lesions throughout the brain. Differential diagnosis includes metastatic disease or disseminated infection. There is no significant edema surrounding any of the lesions, and there is no evidence of hemorrhage or herniation. Contrast enhanced brain MR is recommended for further characterization. Laboratory Results WBC 8.36 10^3/uL (3.29-11.43) 06/11/23 05:05 RBC 4.12 10^6/uL (3.85-5.65) 06/11/23 05:05 Hgb 12.70 g/dL (11.27-16.99) 06/11/23 05:05 Hct 37.7 % (36-47) 06/11/23 05:05 MCV 91.5 fl (85-98) 06/11/23 05:05 MCH 30.8 pg (27-33) 06/11/23 05:05 MCHC 33.7 g/dL (30-55) 06/11/23 05:05 RDW 12.4 % (12.1-15.1) 06/11/23 05:05 Plt Count 227 10^3/cmm (157-399) 06/11/23 05:05 MPV 9.4 fL (7.4-10.4) 06/11/23 05:05 Neut % (Auto) 69.4 % 06/11/23 05:05 Lymph % (Auto) 20.3 % 06/11/23 05:05 [place] % (Auto) 8.6 % 06/11/23 05:05 Eos % (Auto) 0.8 % 06/11/23 05:05 Baso % (Auto) 0.8 % 06/11/23 05:05 Neut # (Auto) 5.79 10^3/uL (1.8-7.7) 06/11/23 05:05 Lymph # (Auto) 1.7 10^3/uL (0.8-4.8) 06/11/23 05:05 [place] # (Auto) 0.7 10^3/uL (0.2-0.9) 06/11/23 05:05 Eos # (Auto) 0.1 10^3/uL (0.0-0.8) 06/11/23 05:05 Baso # (Auto) 0.1 10^3/uL (0.0-0.1) 06/11/23 05:05 Nucleated RBC % (auto) 0 % 06/11/23 05:05 Nucleated RBCs # 0.0 /100WBC 06/11/23 05:05 ESR 7 mm/hr (0-15) 06/10/23 02:54 Sodium 131 mmol/L (136-145) L 06/12/23 05:41 Potassium 4.2 mmol/L (3.5-5.1) 06/12/23 05:41 Chloride 98 mmol/L (98-107) 06/12/23 05:41 Carbon Dioxide 22 mmol/L (22-29) 06/12/23 05:41 Anion Gap 15.2 (5-19) 06/12/23 05:41 BUN 5 mg/dL (8-23) L 06/12/23 05:41 Creatinine 0.6 mg/dL (0.5-0.9) 06/12/23 05:41 GFR Calculation 98.8 mL/min (90-130) 06/12/23 05:41 Glucose 103 mg/dL (65-115) 06/12/23 05:41 POC Glucose 118 mg/dL (70-110) H 06/09/23 20:38 Estimat Average Glucose 105 06/11/23 05:05 Hemoglobin A1c 5.3 % (4.0-6.0) 06/11/23 05:05 Calculated Osmolality 270 mOsm/kg (285-295) L 06/12/23 05:41 Calcium 9.1 mg/dL (8.5-10.5) 06/12/23 05:41 Magnesium 2.0 mg/dL (1.7-2.3) 06/12/23 05:41 Iron 38 ug/dL (37-145) 06/10/23 06:26 TIBC 190 mcg/dl 06/10/23 06:26 % Saturation 20.0 % (20-50) 06/10/23 06:26 Unsat Iron Binding 152 ug/dL (112-347) 06/10/23 06:26 Total Bilirubin 0.4 mg/dL (0.15-1.2) 06/11/23 05:05 AST 18 U/L (0-32) 06/11/23 05:05 ALT 12 U/L (0-33) 06/11/23 05:05 Alkaline Phosphatase 84 U/L (35-105) 06/11/23 05:05 Troponin T Baseline 11 ng/L (0-10) H 06/10/23 01:30 Troponin T 120 Minute 10.60 ng/L (0-10) H 06/10/23 02:54 Delta Troponin T -0.40 ABS# (0-10) L 06/10/23 02:54 Troponin T Hi Sens 6Hr 10.34 ng/L (0-10) H 06/10/23 06:26 Troponin T Hi Sens 6Hr Delta -0.66 ng/L (0-12) L 06/10/23 06:26 C-Reactive Protein 3.0 mg/L (0.0-4.9) 06/10/23 02:54 Total Protein 6.2 g/dL (6.6-8.7) L 06/11/23 05:05 Albumin 3.8 g/dL (3.5-5.2) 06/11/23 05:05 Globulin 2.4 g/dL (1.3-4.6) 06/11/23 05:05 Triglycerides 72 mg/dL (0-150) 06/11/23 05:05 Cholesterol 178 mg/dL (0-200) 06/11/23 05:05 LDL Cholesterol, Calc 98 mg/dL (50-129) 06/11/23 05:05 Total VLDL Cholesterol 14 mg/dL (0-30) 06/11/23 05:05 HDL Cholesterol 66 mg/dL (60-100) 06/11/23 05:05 Cholesterol/HDL Ratio 2.70 mg/dL (0.0-4.40) 06/11/23 05:05 Lipase 87 U/L (13-60) H 06/10/23 02:54 Vitamin B12 Cancelled 06/10/23 06:26 Vit B12 Status 803 pg/mL (200-1100) 06/10/23 02:54 Folate > 20.0 ng/mL (4.8-37.3) 06/11/23 05:05 Procalcitonin 0.39 ng/mL (0-0.5) 06/10/23 02:54 TSH 0.75 uIU/mL (0.27-4.20) 06/10/23 06:26 Urine Color Yellow (Yellow) 06/09/23 21:19 Urine Appearance Clear (CLEAR) 06/09/23 21:19 Urine pH 7 (5-7) 06/09/23 21:19 Ur Specific [place] 1.010 (1.005-1.030) 06/09/23 21:19 Urine Protein Neg (Negative) 06/09/23 21:19 Urine Glucose (UA) Norm (Normal) 06/09/23 21:19 Urine Ketones 1+ (Negative) H 06/09/23 21:19 Urine Blood Trace (Negative) H 06/09/23 21:19 Urine Nitrate Negative (Negative) 06/09/23 21:19 Urine Bilirubin Neg (Negative) 06/09/23 21:19 Urine Urobilinogen Neg mg/dL (Negative) 06/09/23 21:19 Ur Leukocyte Esterase Negative (Negative) 06/09/23 21:19 Urine RBC Rare /hpf (0-2) 06/09/23 21:19 Urine WBC None /hpf (0-5) 06/09/23 21:19 Ur Squamous Epith Cells None /hpf (0-5) 06/09/23 21:19 Amorphous Sediment Not Reportable 06/09/23 21:19 Urine Bacteria None /hpf (NONE) 06/09/23 21:19 Vitals Last Vital Signs Temp 98.2 F 06/12/23 11:46 Pulse 83 06/12/23 11:46 Resp 17 06/12/23 11:46 BP 154/83 06/12/23 11:46 Pulse Ox 97 06/12/23 11:46 O2 Del Method Room Air 06/12/23 11:46 Discharge Plan Discharge Patient Disposition: Home Health Service Condition: Stable Prescriptions: New polyethylene glycol 3350 17 gram Powder In Packet 17 g PO BID Qty: 180 0RF sodium chloride 1,000 mg Tablet,Soluble 1 g PO BID Qty: 30 0RF amlodipine 5 mg tablet 5 mg PO DAILY Qty: 90 0RF Discharge Orders: Discharge Order (Routine); Ordered 06/12/23 Ordered By: Jorge Pace Referrals: [facility] [Family Provider] - 4-7 days (Spoke to [facility]. They stated since patient has not been seen since 2018 the patient will have to call and get re-esablished as a new patient. ) Discharge Diet: Regular and Soft Mechanical Discharge Activity: Increase activity as tolerated Patient Instructions: Amlodipine (By mouth), Polyethylene Glycol 3350 (By mouth), Hyponatremia (GEN), Fall Prevention (GEN), Opioid Safety Activity Restrictions/Additional Instructions: Avoid forcing self to drink water especially if you are not eating much. Drink if you are thirsty. Try to increase oral intake. Add Ensure or other protein supplements to meals. Follow-up with your primary provider for reassessment of low sodium level. Follow-up with your primary provider regarding suspicious-appearing kidney left nodule 2.2 cm in size, as well as adrenal mass 3.6 x 3 cm in size. Additional assessment with contrast CT may be helpful. Alternatively possibly ultrasound. Follow-up with your primary provider also regarding atelectasis in the left lower lung, with consideration of additional CT with contrast of your chest to further assess and exclude possible mass. Continue incentive spirometer. Seek medical attention in case of any worsening or new concerning symptoms. Discharge Attestations Time Spent in Discharge Care*: greater than 30 min Quality Metrics Clinical Quality Measures [ No reported AMI, CVA or VTE this stay] Coding Level of Care Code 94624 Total time (in minutes) for Discharge: 45 Diagnoses Acute hyponatremia E87.1 Acute encephalopathy G93.40 Generalized weakness R53.1 Fatigue R53.83 Nausea R11.0
== END 2023-06-12 13:48 | disposition home or self-care (01) | DRG 641 ==
LOC: ER 23:25 → MEDSURG 06-10 02:06
PROVIDERS: Student in an Organized Health Care Education/Training Program; Admitting Provider Family Medicine; Emergency Provider Emergency Medicine; Visit Provider Internal Medicine
DX: E87.1 Hypo-osmolality and hyponatremia (principal); G93.49 Other encephalopathy; T50.916A Underdosing of multiple unspecified drugs, medicaments and biological substances, initial encounter; Z91.128 Patient's intentional underdosing of medication regimen for other reason; E86.0 Dehydration; G93.9 Disorder of brain, unspecified; N28.9 Disorder of kidney and ureter, unspecified; E27.9 Disorder of adrenal gland, unspecified; R07.81 Pleurodynia; K59.00 Constipation, unspecified
CPT/HCPCS: 36415; 36416; 70450; 71045; 74018; 74176; 80048; 80053; 80061; 81001; 82607; 82746; 82962; 83036; 83540; 83550; 83690; 83735; 84145; 84295; 84443; 84484; 85025; 85651; 86140; 93005; 96372; 97116; 97161; 97165; 99285; C9113; G0378; J1650; J7030

== ENCOUNTER 2023-06-29 10:54 | Emergency (ER) | payer OTHER, SELFPAY ==
[2023-06-29 10:54] VITALS: BP 137/101; PULSE 83; RESP 18; TEMP 36.8; O2SAT 99; BMI 20.7
--- NOTE | 2023-06-29 10:58 | ECG_ITS ---
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 Measurements Intervals [place] Rate: 85 P: 62 DC: 178 QRS: -67 QRSD: 94 T: 59 QT: 348 QTc: 415 Interpretive Statements SINUS RHYTHM INCOMPLETE RIGHT BUNDLE BRANCH BLOCK [90+ ms QRS DURATION, TERMINAL R IN V1/V2, 40+ ms S IN I/aVL/V4/V5/V6] LEFT ANTERIOR FASCICULAR BLOCK [QRS AXIS <= -45, QR IN I, RS IN II] MODERATE VOLTAGE CRITERIA FOR LVH, CONSIDER NORMAL VARIANT [MEETS CRITERIA IN ONE OF: R(aVL), S(V1), R(V5), R(V5/V6)+S(V1)] POSSIBLE ANTEROSEPTAL MYOCARDIAL INFARCTION , OF INDETERMINATE AGE [30 ms Q WAVE IN V1-V4] Compared to ECG 06/10/2023 06:57:17 No significant changes Electronically Signed On 06-29-2023 16:26:13 CDT by Mely Delgado M.D. [id number]
--- NOTE | 2023-06-29 10:58 | XR_ITS ---
WS: [id number] Exam: XR chest 1V portable [id number] Date/Time of Exam: 06/29/2023 10:59 AM Reason For Exam: dyspnea/cough Comparison 06/09/2023. The lungs are hyperinflated and clear. Heart size is normal. The mediastinum is normal in contour. Le voscoliosis of the T-spine. Chronic deformity of the LEFT chest cage with several old rib fractures. IMPRESSION: 1. Pulmonary hyperinflation. No acute cardiopulmonary finding.
--- NOTE | 2023-06-29 10:58 | CT_ITS ---
WS: [id number] CT HEAD NONCONTRAST HISTORY: AMS TECHNIQUE: Contiguous axial imaging performed through the brain in 3.0 mm imaging. Bone and soft tiss ue windows. Sagittal and coronal reformats reviewed. All CT scans at [facility] use at least one of these dose optimization techniques: automated exposure control; mA and/or kV adjustment per pa tient size (includes targeted exams where dose is matched to clinical indication); or iterative recon struction. DLP: 888.78 mGy.cm COMPARISON: 06/10/2023 Multiple scattered abnormalities are noted within the brain. There are bilateral low-attenuation thal amic lesions. The largest on the LEFT measures 1.5 cm in diameter. These lesions were also present on the prior study of 06/10/2023 but slightly increased in size. There are several low-attenuation lesio ns throughout the brain including the LEFT frontal and posterior LEFT parietal lobe. There is a small amount of surrounding edema associated with the largest lesions. There is also some increased attenu ation within several of the smaller lesions suggesting increased cellular content. Very slight increa sed attenuation in the medial RIGHT temporal lobe. There is no mass effect. No hydrocephalus. There is mild atrophy. Paranasal sinuses: As visualized are clear. Mastoid air cells: Well pneumatized. Calvarium and scalp: Skull is intact with no soft tissue edema or swelling. IMPRESSION: 1. Numerous bilateral low-attenuation lesions throughout the brain including the thalami. These lesio ns were described on 06/10/2023 and have slightly increased in size. There is edema surrounding the l argest lesions. There is also associated increased attenuation with several of the smaller lesions. D ifferential include metastatic lesions and infectious etiologies. Consider cryptococcus, cysticercosi s, TB, ACCOUNTS COLLECTOR lymphoma and toxoplasmosis. 2. No hydrocephalus. 3. Mild atrophy and small vessel ischemic disease. Notified Mihir Monsivais DO at 06/29/2023 12:18 PM.
--- NOTE | 2023-06-29 11:24 | W.ED.AMS ---
HPI - Altered Mental Status General: Chief Complaint: Altered Mental Status Stated Complaint: ams Time Seen by Provider: 06/29/23 10:57 Source: patient Mode of arrival: ambulatory History of Present Illness: 68-year-old female confused and disoriented. She has a known history of brain mets as well as hyponatremia. She was [place] [facility]. Her clinic doctor difficulty convincing her to come to the emergency room. She was having diarrhea as confusion as well as hyponatremia where she was recently hospitalized. Patient is confused and disoriented she has difficult time holding a coherent conversation she is aware of time place and person she does not understand why she is in the emergency room. complaint: altered mental status Onset (ago): day(s) Severity: severe Consistency of symptoms: Waxing and Waning Review of Systems Const: Denies: fever(s) or chills Card: Denies: chest pain Resp: Denies: dyspnea GI: Denies: abdominal pain : Denies: dysuria, urinary frequency or urinary urgency Musc: Denies: neck pain or back pain Skin/Breast: Denies: rash PFS ED PFSH: Medical History (Updated 07/05/23 @ 06:58 by Mihir Monsivais DO) Acute hyponatremia No pertinent past medical history Surgical History History of appendectomy History of hysterectomy Family History Other No pertinent family history Social History Smoking and tobacco/nicotine status: never used tobacco/nicotine Alcohol intake: never Substance/Drug Use: never Physical Exam Const: COMMON NORMALS: no acute distress GENERAL APPEARANCE: cooperative and comfortable ORIENTATION/CONSCIOUSNESS: Yes awake HENMT: COMMON NORMALS: normocephalic, atraumatic and hearing grossly normal bilaterally HEAD & SCALP: normocephalic and atraumatic Resp: COMMON NORMALS: normal respiratory effort, No retractions, No use of accessory muscles and clear to auscultation bilaterally AUSCULTATION: clear to auscultation bilaterally Cardio: COMMON NORMALS: regular rate, regular rhythm and No murmurs present (Cardio) RATE: regular rate RHYTHM: regular rhythm GI: COMMON NORMALS: Soft to palpation and No hepatosplenomegaly present AUSCULTATION: Yes normoactive bowel sounds PALPATION: Yes Soft to palpation, No Tenderness to palpation present (GI), No Guarding due to palpation present (GI) and Yes No hepatosplenomegaly present Extremity: COMMON NORMALS: normal to inspection, capillary refill normal, no clubbing, cyanosis or edema, no calf tenderness and no pedal edema Skin: COMMON NORMALS: no rashes or lesions noted GENERAL SKIN EXAM: no rashes or lesions noted Course Vital Signs: Vital signs: Vital Signs Temperature 98.3 F 06/29/23 10:54 Pulse Rate 83 06/29/23 10:54 Respiratory Rate 18 06/29/23 10:54 Blood Pressure 137/101 06/29/23 10:54 Pulse Oximetry 99 06/29/23 10:54 Oxygen Delivery Me thod Room Air 06/29/23 10:54 MDM - Altered Mental Status Medical Decision Making Labs and imaging reviewed. Patient should be admitted and discussed with the patient she is opposed to me that she wants to go home and think about whether or not she needs to be admitted at very least she says she wants to consider it for several hours before she tells us whether or not she will agree for admission. She does not have any family members available but she does have a neighbor who has DURABLE POWER OF FAST FOOD SHIFT SUPERVISOR. I recommended the patient be admitted. We consult hospitalist Dr. Chino seen the patient patient refused to be admitted he felt at this point that she is capable of making informed consent. I do not believe she understands the implications of her laboratory status or the effect of the metastasis in her brain. Patient's friend of the power of [place] attorney does not wish to make use of the power of united states attorney and wishes to allow her to go home. At this point with the power of united states attorney not willing to exercise it I do not have the ability to keep her here. Patient is choosing to leave AMA. Encouraged to return at any point if she wishes assistance. Medical Records I reviewed the patient's medical records. Lab Data I reviewed the patient's lab results. 06/29/23 11:18 06/29/23 11:18 Laboratory Results WBC 10.15 10^3/uL (3.29-11.43) 06/29/23 11:18 RBC 4.26 10^6/uL (3.85-5.65) 06/29/23 11:18 Hgb 13.20 g/dL (11.27-16.99) 06/29/23 11:18 Hct 38.5 % (36-47) 06/29/23 11:18 MCV 90.4 fl (85-98) 06/29/23 11:18 MCH 31.0 pg (27-33) 06/29/23 11:18 MCHC 34.3 g/dL (30-55) 06/29/23 11:18 RDW 12.3 % (12.1-15.1) 06/29/23 11:18 Plt Count 381 10^3/cmm (157-399) 06/29/23 11:18 MPV 8.6 fL (7.4-10.4) 06/29/23 11:18 Neut % (Auto) 81.4 % 06/29/23 11:18 Lymph % (Auto) 11.5 % 06/29/23 11:18 [place] % (Auto) 6.1 % 06/29/23 11:18 Eos % (Auto) 0.3 % 06/29/23 11:18 Baso % (Auto) 0.5 % 06/29/23 11:18 Neut # (Auto) 8.26 10^3/uL (1.8-7.7) H 06/29/23 11:18 Lymph # (Auto) 1.2 10^3/uL (0.8-4.8) 06/29/23 11:18 [place] # (Auto) 0.6 10^3/uL (0.2-0.9) 06/29/23 11:18 Eos # (Auto) 0.0 10^3/uL (0.0-0.8) 06/29/23 11:18 Baso # (Auto) 0.1 10^3/uL (0.0-0.1) 06/29/23 11:18 Nucleated RBC % (auto) 0 % 06/29/23 11:18 Nucleated RBCs # 0.0 /100WBC 06/29/23 11:18 Sodium 124 mmol/L (136-145) L 06/29/23 11:18 Potassium 3.8 mmol/L (3.5-5.1) 06/29/23 11:18 Chloride 87 mmol/L (98-107) L 06/29/23 11:18 Carbon Dioxide 24 mmol/L (22-29) 06/29/23 11:18 Anion Gap 16.8 (5-19) 06/29/23 11:18 BUN 8 mg/dL (8-23) 06/29/23 11:18 Creatinine 0.5 mg/dL (0.5-0.9) 06/29/23 11:18 GFR Calculation 122.0 mL/min (90-130) 06/29/23 11:18 Glucose 104 mg/dL (65-115) 06/29/23 11:18 Calculated Osmolality 257 mOsm/kg (285-295) L 06/29/23 11:18 Calcium 9.6 mg/dL (8.5-10.5) 06/29/23 11:18 Total Bilirubin 0.4 mg/dL (0.15-1.2) 06/29/23 11:18 AST 17 U/L (0-32) 06/29/23 11:18 ALT 13 U/L (0-33) 06/29/23 11:18 Alkaline Phosphatase 89 U/L (35-105) 06/29/23 11:18 Creatine Kinase 74 U/L (26-192) 06/29/23 11:18 Troponin T Baseline 10 ng/L (0-10) 06/29/23 11:18 Troponin T 120 Minute 11.41 ng/L (0-10) H 06/29/23 13:45 Delta Troponin T 1.41 ABS# (0-10) 06/29/23 13:45 Total Protein 6.9 g/dL (6.6-8.7) 06/29/23 11:18 Albumin 4.2 g/dL (3.5-5.2) 06/29/23 11:18 Globulin 2.7 g/dL (1.3-4.6) 06/29/23 11:18 Urine Color Yellow (Yellow) 06/29/23 12:53 Urine Appearance Clear (CLEAR) 06/29/23 12:53 Urine pH 7 (5-7) 06/29/23 12:53 Ur Specific [place] 1.005 (1.005-1.030) 06/29/23 12:53 Urine Protein Neg (Negative) 06/29/23 12:53 Urine Glucose (UA) Norm (Normal) 06/29/23 12:53 Urine Ketones 1+ (Negative) H 06/29/23 12:53 Urine Blood Neg (Negative) 06/29/23 12:53 Urine Nitrate Negative (Negative) 06/29/23 12:53 Urine Bilirubin Neg (Negative) 06/29/23 12:53 Urine Urobilinogen Norm mg/dL (Negative) 06/29/23 12:53 Ur Leukocyte Esterase Negative (Negative) 06/29/23 12:53 Urine RBC Cancelled 06/29/23 12:53 Urine WBC Cancelled 06/29/23 12:53 Ur Squamous Epith Cells Cancelled 06/29/23 12:53 Ur Transition Epith Cell Cancelled 06/29/23 12:53 Ur Renal Epithelial Cell Cancelled 06/29/23 12:53 Calcium Oxalate Crystal Cancelled 06/29/23 12:53 Uric Acid Crystals Cancelled 06/29/23 12:53 Triple Phos Crystals Cancelled 06/29/23 12:53 Other Crystals Cancelled 06/29/23 12:53 Amorphous Sediment Cancelled 06/29/23 12:53 Urine Bacteria Cancelled 06/29/23 12:53 Hyaline Casts Cancelled 06/29/23 12:53 Fine Granular Casts Cancelled 06/29/23 12:53 Coarse Granular Casts Cancelled 06/29/23 12:53 RBC Casts Cancelled 06/29/23 12:53 Other Casts Cancelled 06/29/23 12:53 Urine Mucus Cancelled 06/29/23 12:53 Urine Trichomonas Cancelled 06/29/23 12:53 Urine Yeast Cancelled 06/29/23 12:53 Urine Sperm Cancelled 06/29/23 12:53 Ur Oval Fat Bodies Cancelled 06/29/23 12:53 All radiology interpretation(s) finalized by discharge Discharge Plan Discharge Patient Disposition: Left Against Medical Advice Clinical Impression: Acute encephalopathy, Chronic hyponatremia, Altered mental status, Delirium due to general medical condition, Metastasis to brain Condition: Stable Prescriptions: No Action sodium chloride 1,000 mg Tablet,Soluble 1 g PO BID Qty: 30 0RF Rx Instructions: for 15 days (rx filled 06/12/23) amlodipine 5 mg tablet 5 mg PO DAILY Qty: 90 0RF ClearLax 17 gram/dose powder 17 g PO BID Rx Instructions: for 15 days (rx filled 06/12/23 Referrals: [place] [facility] [Primary Care Provider] - Patient Instructions: Hyponatremia (ED), Benzodiazepine Use Disorder (ED), Dementia (ED), Non-diabetic Hypoglycemia (ED), Hypoglycemia in a Person with Diabetes (ED), Concussion (ED), Alcohol Intoxication (ED), Subarachnoid Hemorrhage (GEN), Altered Mental Status (ED) Coding Level of Care Code ED Road Cutter for Toni Noriega
[2023-06-29 11:32] LABS: Basophils # 0.1 10^3/uL (0.0-0.1); Basophils % 0.5 %; Eosinophils % 0.3 %; Hematocrit 38.5 % (36-47); Lymphocytes # 1.2 10^3/uL (0.8-4.8); Lymphocytes % 11.5 %; Mean Corpuscular HGB Conc 34.3 g/dL (30-55); Mean Corpuscular Volume 90.4 fl (85-98); Mean Platelet Volume 8.6 fL (7.4-10.4); Monocytes # 0.6 10^3/uL (0.2-0.9); Monocytes % 6.1 %; Neutrophils # 8.26 10^3/uL (1.8-7.7); Neutrophils % 81.4 %; Nucleated Red Blood Cells % 0 %; Platelet Count 381 10^3/cmm (157-399); Red Blood Count 4.26 10^6/uL (3.85-5.65); Red Cell Distribution Width 12.3 % (12.1-15.1); White Blood Count 10.15 10^3/uL (3.29-11.43)
[2023-06-29 11:43] LABS: Alanine Aminotransferase 13 U/L (0-33); Albumin Level 4.2 g/dL (3.5-5.2); Alkaline Phosphatase 89 U/L (35-105); Anion Gap 16.8 (5-19); Aspartate Amino Transferase 17 U/L (0-32); Blood Urea Nitrogen 8 mg/dL (8-23); Calcium 9.6 mg/dL (8.5-10.5); Carbon Dioxide 24 mmol/L (22-29); Chloride 87 mmol/L (98-107); Creatine Phosphokinase 74 U/L (26-192); Globulin 2.7 g/dL (1.3-4.6); Glucose 104 mg/dL (65-115); Osmolality Calculated 257 mOsm/kg (285-295); Potassium 3.8 mmol/L (3.5-5.1); Sodium 124 mmol/L (136-145); Total Bilirubin 0.4 mg/dL (0.15-1.2); Total Protein 6.9 g/dL (6.6-8.7); Troponin(5th) Baseline 10 ng/L (0-10)
[2023-06-29 12:57] LABS: Charge for UA Resulting for Rev
--- NOTE | 2023-06-29 12:58 | ECG_ITS ---
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 Measurements Intervals [place] Rate: 84 P: 55 MS: 178 QRS: -71 QRSD: 96 T: 57 QT: 352 QTc: 416 Interpretive Statements SINUS RHYTHM PATTERN CONSISTENT WITH PULMONARY DISEASE INCOMPLETE RIGHT BUNDLE BRANCH BLOCK [90+ ms QRS DURATION, TERMINAL R IN V1/V2, 40+ ms S IN I/aVL/V4/V5/V6] LEFT ANTERIOR FASCICULAR BLOCK [QRS AXIS <= -45, QR IN I, RS IN II] MINIMAL VOLTAGE CRITERIA FOR LVH, CONSIDER NORMAL VARIANT [MEETS CRITERIA IN ONE OF: R(aVL), S(V1), R(V5), R(V5/V6)+S(V1)] SEPTAL MYOCARDIAL INFARCTION , OF INDETERMINATE AGE [40+ ms Q WAVE IN V1/V2] Compared to ECG 06/29/2023 11:12:35 No significant changes Electronically Signed On 06-29-2023 16:33:35 CDT by Mely Delgado M.D. [id number]
[2023-06-29] MEDS: dexamethasone 10 mg/mL INJ IVP (13:15)
[2023-06-29 13:19] LABS: Add Urine Microscopic? YES; Bilirubin Urine Neg (Negative); Blood Urine Neg (Negative); Glucose Urine UA Norm (Normal); Ketones Urine 1+ (Negative); Leukocyte Esterase Urine Negative (Negative); Nitrate Urine Negative (Negative); Protein Urine Neg (Negative); Specific Gravity, Urine 1.005 (1.005-1.030); Urine Appearance Clear (CLEAR); Urine Color Yellow (Yellow); Urobilinogen Urine Norm (Negative); pH Urine 7 (5-7)
[2023-06-29 14:12] LABS: Troponin 5 2HR 11.41 ng/L (0-10)
[2023-06-29 14:13] LABS: Troponin 5 2HR Delta 1.41 ABS# (0-10)
== END 2023-06-29 15:01 | disposition left against medical advice (07) ==
PROVIDERS: Emergency Provider Family Medicine
DX: G93.40 Encephalopathy, unspecified (principal); E87.1 Hypo-osmolality and hyponatremia; R41.82 Altered mental status, unspecified; F05 Delirium due to known physiological condition; Z53.21 Procedure and treatment not carried out due to patient leaving prior to being seen by health care provider; C79.31 Secondary malignant neoplasm of brain
CPT/HCPCS: 36415; 70450; 71045; 80053; 81003; 82550; 84484; 85025; 93005; 96374; 99285; J1100

== ENCOUNTER 2023-07-01 09:56 | Inpatient (IN) | payer OTHER, SELFPAY ==
[2023-07-01] VITALS (45 sets, daily range): BP systolic 64–182; BP diastolic 36–141; PULSE 66–152; RESP 13–35; TEMP 36.3; O2SAT 90–100; BMI 21.1
--- NOTE | 2023-07-01 10:04 | ECG_ITS ---
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 Measurements Intervals [place] Rate: 93 P: 65 HI: 173 QRS: -76 QRSD: 101 T: 77 QT: 329 QTc: 410 Interpretive Statements SINUS RHYTHM POSSIBLE LEFT ATRIAL ENLARGEMENT [-0.1mV P-WAVE IN V1/V2] INCOMPLETE RIGHT BUNDLE BRANCH BLOCK [90+ ms QRS DURATION, TERMINAL R IN V1/V2, 40+ ms S IN I/aVL/V4/V5/V6] LEFT ANTERIOR FASCICULAR BLOCK [QRS AXIS <= -45, QR IN I, RS IN II] POSSIBLE ANTERIOR MYOCARDIAL INFARCTION , OF INDETERMINATE AGE [30 ms Q WAVE IN V3/V4, OR R < 0.2 mV IN V4] Compared to ECG 06/29/2023 12:58:48 No significant changes Electronically Signed On 07-01-2023 10:15:19 CDT by Tong Coffey M.D. [id number]
--- NOTE | 2023-07-01 10:16 | XRR_ITS ---
PROCEDURE INFORMATION: Exam: XR Chest Exam date and time: 07/01/2023 10:37 AM Age: 68 years old Clinical indication: Shortness of breath; Additional info: Dyspnea TECHNIQUE: Imaging protocol: Radiologic exam of the chest. Views: 1 view. COMPARISON: CR XR chest 1V portable [id number] 06/29/2023 11:17 AM FINDINGS: Lungs: There is volume loss in the left hemithorax and relative hyperexpansion of the right lung. There is hazy opacity projecting over the left mid to lower thorax. No focal consolidation is seen on the right. Pleural spaces: The left lateral costophrenic sulcus is blunted. No pneumothorax. Heart/Mediastinum: There is leftward shift of the mediastinum similar to 06/29/2023. Cardiomediastinal contours are unremarkable. Bones/joints: There is mild broad-based convex left thoracic scoliosis. There are healed left posterolateral 5th and 6th rib fractures. XR/XR chest 1V portable [id number] IMPRESSION: 1. No change since 06/29/2023. 2. Volume loss in the left hemithorax with opacification of the left lower lung is consistent with complete left lower lobe atelectasis which was partially imaged on abdomen pelvis CT 06/10/2023.
--- NOTE | 2023-07-01 10:20 | ED_ITS ---
HPI - SOB/Dyspnea General: Chief Complaint: Shortness of Breath/Dyspnea Stated Complaint: SOB Time Seen by Provider: 07/01/23 10:15 History of Present Illness: HPI Narrative: 68-year-old female presents emergency department via EMS personnel with complaints of increased shortness of breath and chest tightness. Patient was recently seen here at this hospital for encephalopathy. She presents today with worsening shortness of breath she does continue to smoke cigarettes daily. She is in obvious acute distress with tachypnea and appears to be having significant anxiety given her increased shortness of breath. Associated symptoms: Reports chest pain Review of Systems General: Reports: 10 or more systems reviewed and unremarkable except in HPI and below Card: Reports: chest pain Resp: Reports: dyspnea and wheezing Psych: Reports: anxiety PFSH ED PFSH: Medical History (Updated 07/08/23 @ 02:18 by Rip Escamilla MD) Acute hyponatremia No pertinent past medical history Surgical History History of appendectomy History of hysterectomy Family History Other No pertinent family history Social History Smoking and tobacco/nicotine status: never used tobacco/nicotine Alcohol intake: never Substance/Drug Use: never Physical Exam Narrative: EXAM NARRATIVE: Constitutional: Patient does appear to be acutely ill, in significant distress, thin and frail. Vital signs reviewed as documented. HENMT: Normocephalic, atraumatic. Extermal ears with normal appearance without drainage. Nose without drainage, normal appearance. Mucus membranes moist. Neck is supple, No jugular venous distension, trachea is midline, no appreciable carotid bruits. No lymphadenopathy. No meningeal signs. Flexion, extension and lateral rotation is without pain. Eyes: Pupils are equal, round, reactive to light and accomidation. No scleral icterus. Extra-ocular movement are intact. Thorax is symmetrical and with equal rise and fall with respirations. Resp: Course throughout, significant expiratory wheezes, tachypnea noted. Positive for Rales throughout. Cardio: Tachycardic Positive S1, S2. No appreciable murmurs, rubs or gallops. GI: Abdominal exam reveals normal bowel sounds to all quadrants. No organomegaly. No obvious palpable masses noted. No hepatomegaly appreciated. Soft, nontender to palpation. Extremity: Extremities are non-edematous and both femoral and pedal pulses are 2+ and equal bilaterally. Moves all extremities well, sensation in all extremities. Neuro: Alert and oriented x4, person, place, time and situation. Cranial nerves II through XII are grossly intact, there is no focal neurological deficits that I can appreciate at present. Motor strength in the upper and lower extremities are equal and bilateral 5/5. Psych: Cooperative, Anxious, normal thought process, appropriate judgment. Skin: No lesions, rashes. No gross abnormalities noted. Back: Symmetrical, no obvious deformity, No CVA tenderness Course Vital Signs: Vital signs: Vital Signs Temperature 97.4 F L 07/01/23 09:58 Pulse Rate 0 L 07/02/23 02:00 Respiratory Rate 0 L 07/02/23 02:00 Blood Pressure 67/46 07/02/23 01:00 Pulse Oximetry 85 L 07/02/23 01:51 Oxygen Delivery Me thod Room Air 07/02/23 01:45 Oxygen Flow Rate 55 07/01/23 17:10 Fraction of Inspir ed Oxygen 100 07/01/23 17:10 MDM - SOB/Dyspnea Medical Decision Making Physical exam completed and documented, laboratory evaluation to include a CBC, CMP cardiac enzymes twelve-lead EKG and chest x-ray. We will place the patient on BiPAP to support her ventilatory and respiratory status. Patient does appear to be significantly hypoxemic upon initial presentation. Given her continued use of tobacco products in her recurrent presentations I am concerned for malignancy and have discussed with the hospital physician the patient's wishes to not be intubated. I also discussed with the hospitalist physician possibility of pulmonary embolism and he will obtain a D-dimer and a CTA chest to evaluate. Medical Records I reviewed the patient's medical records. Lab Data I reviewed the patient's lab results. 07/01/23 10:00 07/01/23 17:14 Labs/Radiology: Radiology Impressions Chest X-Ray 07/01/23 10:16 IMPRESSION: 1. No change since 06/29/2023. 2. Volume loss in the left hemithorax with opacification of the left lower lung is consistent with complete left lower lobe atelectasis which was partially imaged on abdomen pelvis CT 06/10/2023. Chest CTA 07/01/23 13:14 IMPRESSION: 1. Right upper lobe pulmonary embolism. 2. Mediastinal and left hilar mass occluding the left main bronchus is consistent with a malignant neoplasm. 3. Complete left lower lobe atelectasis. 4. 8 mm suspicious nodule in the left upper lobe. Possible metastasis. 5. Left adrenal mass. Probable metastasis. 6. Mass involving the upper pole of the left kidney. Nonspecific. Possible primary renal tumor versus extension of the adrenal mass to involve the kidney. 7. Extensive thoracolumbar compression fractures of indeterminate age. 8. Incidental findings above. COMMENTS: Consistent with the [place] [employer]'s Incidental Findings Committee white paper (J Am Karolyn Radiol 2018): Any incidental renal lesion less than 1 cm or classified as too small to characterize, or any incidental cystic renal lesion characterized as simple-appearing, is likely benign. No follow-up imaging is recommended for these lesions per consensus recommendations based on imaging criteria. ADDENDUM: 07/01/23 1457 Correction: Item 2 of the impression section of the report below contains an error. The left lower lobe bronchus is occluded. THIS REPORT CONTAINS FINDINGS THAT MAY BE CRITICAL TO PATIENT CARE. The findings were verbally communicated via telephone conference with JAK WHITAKER at 2:57 PM CDT on 07/01/2023. The findings were acknowledged and understood. Laboratory Results WBC 20.81 10^3/uL (3.29-11.43) H 07/01/23 10:00 RBC 4.36 10^6/uL (3.85-5.65) 07/01/23 10:00 Hgb 13.20 g/dL (11.27-16.99) 07/01/23 10:00 Hct 38.9 % (36-47) 07/01/23 10:00 MCV 89.2 fl (85-98) 07/01/23 10:00 MCH 30.3 pg (27-33) 07/01/23 10:00 MCHC 33.9 g/dL (30-55) 07/01/23 10:00 RDW 12.1 % (12.1-15.1) 07/01/23 10:00 Plt Count 397 10^3/cmm (157-399) 07/01/23 10:00 MPV 9.4 fL (7.4-10.4) 07/01/23 10:00 Neut % (Auto) 90.8 % 07/01/23 10:00 Lymph % (Auto) 2.8 % 07/01/23 10:00 [place] % (Auto) 5.7 % 07/01/23 10:00 Eos % (Auto) 0.0 % 07/01/23 10:00 Baso % (Auto) 0.2 % 07/01/23 10:00 Neut # (Auto) 18.89 10^3/uL (1.8-7.7) H 07/01/23 10:00 Lymph # (Auto) 0.6 10^3/uL (0.8-4.8) L 07/01/23 10:00 [place] # (Auto) 1.2 10^3/uL (0.2-0.9) H 07/01/23 10:00 Eos # (Auto) 0.0 10^3/uL (0.0-0.8) 07/01/23 10:00 Baso # (Auto) 0.0 10^3/uL (0.0-0.1) 07/01/23 10:00 Nucleated RBC % (auto) 0 % 07/01/23 10:00 Nucleated RBCs # 0.0 /100WBC 07/01/23 10:00 PT 12.50 SECONDS (12.1-14.9) 07/01/23 10:00 INR 0.91 (0.8-1.2) 07/01/23 10:00 D-Dimer 6.94 ug/mLFEU (0-0.59) H 07/01/23 10:00 Specimen Type Arterial 07/01/23 11:34 Sample Site Radial, left 07/01/23 11:34 ABG pH 7.32 (7.35-7.45) L 07/01/23 11:34 ABG pCO2 53.0 mmHg (35-45) H 07/01/23 11:34 ABG pO2 205.0 mmHg (80.0-100.0) H 07/01/23 11:34 ABG HCO3 27.3 mmol/L (22-26) H 07/01/23 11:34 ABG O2 Saturation > 100.0 07/01/23 11:34 ABG Base Excess 0.3 mmol/L (-2.0-2.0) 07/01/23 11:34 Ricky Test Pos 07/01/23 11:34 A-a O2 Gradient 57.6 mmHg (5-10) H 07/01/23 11:34 Hematocrit 41.7 % (37-47) 07/01/23 11:34 Hgb O2 Saturation 98.5 % (95-100) 07/01/23 11:34 Carboxyhemoglobin 1.6 %THgb (0.4-20.1) 07/01/23 11:34 Methemoglobin 0.3 % (0.4-1.5) L 07/01/23 11:34 Total Hemoglobin 13.6 g/dL (12-16) 07/01/23 11:34 Sodium 122.0 mmol/L (131-143) L 07/01/23 11:34 Potassium 3.5 mmol/L (3.5-5.0) 07/01/23 11:34 Glucose 191.0 mg/dL (70-115) H 07/01/23 11:34 Ionized Calcium 1.2 mmol/L (1.1-1.4) 07/01/23 11:34 O2 Delivery Device Bipap 07/01/23 11:34 O2 Liters/Min 7.0 % 07/01/23 10:15 FiO2 100.0 % 07/01/23 11:34 PEEP 10.0 cmH20 07/01/23 11:34 [place]oud[place] ID Dorian 07/01/23 11:34 Sodium 119 mmol/L (136-145) L* 07/01/23 10:00 Potassium 3.7 mmol/L (3.5-5.1) 07/01/23 10:00 Chloride 81 mmol/L (98-107) L 07/01/23 10:00 Carbon Dioxide 25 mmol/L (22-29) 07/01/23 10:00 Anion Gap 16.7 (5-19) 07/01/23 10:00 BUN 8 mg/dL (8-23) 07/01/23 10:00 Creatinine 0.4 mg/dL (0.5-0.9) L 07/01/23 10:00 GFR Calculation 157.8 mL/min (90-130) H 07/01/23 10:00 Glucose 160 mg/dL (65-115) H 07/01/23 10:00 Serum Osmolality 252 mOsm/kg (278-305) L 07/01/23 10:00 Calculated Osmolality 250 mOsm/kg (285-295) L 07/01/23 10:00 Lactic Acid 1.8 mmol/L (0.5-2.2) 07/01/23 10:25 Uric Acid 2.3 mg/dL (2.4-5.7) L 07/01/23 10:00 Calcium 9.4 mg/dL (8.5-10.5) 07/01/23 10:00 Total Bilirubin 0.8 mg/dL (0.15-1.2) 07/01/23 10:00 AST 30 U/L (0-32) 07/01/23 10:00 ALT 22 U/L (0-33) 07/01/23 10:00 Alkaline Phosphatase 100 U/L (35-105) 07/01/23 10:00 Troponin T Baseline 33 ng/L (0-10) H 07/01/23 10:00 Troponin T 120 Minute 55.16 ng/L (0-10) H 07/01/23 11:48 Delta Troponin T 22.16 ABS# (0-10) H* 07/01/23 11:48 NT-Pro-B Natriuret Pep 722 pg/mL (0-125) H 07/01/23 10:00 Total Protein 7.5 g/dL (6.6-8.7) 07/01/23 10:00 Albumin 4.7 g/dL (3.5-5.2) 07/01/23 10:00 Globulin 2.8 g/dL (1.3-4.6) 07/01/23 10:00 Vitamin B12 832 pg/mL (232-1245) 07/01/23 10:00 TSH 0.94 uIU/mL (0.27-4.20) 07/01/23 10:00 Influenza Type A Ag negative (Negative) 07/01/23 10:30 Influenza Type B Ag negative (Negative) 07/01/23 10:30 SARS-CoV-2 Ag (Rapid) negative (Negative) 07/01/23 10:30 All radiology interpretation(s) finalized by discharge ED provider radiology interpretation(s): Procedure(s): XR chest 1V portable [id number] Accession Number(s): [id number] Report Number: [id number] PROCEDURE INFORMATION: Exam: XR Chest Exam date and time: 07/01/2023 10:37 AM Age: 68 years old Clinical indication: Shortness of breath; Additional info: Dyspnea TECHNIQUE: Imaging protocol: Radiologic exam of the chest. Views: 1 view. COMPARISON: CR XR chest 1V portable [id number] 06/29/2023 11:17 AM FINDINGS: Lungs: There is volume loss in the left hemithorax and relative hyperexpansion of the right lung. There is hazy opacity projecting over the left mid to lower thorax. No focal consolidation is seen on the right. Pleural spaces: The left lateral costophrenic sulcus is blunted. No pneumothorax. Heart/Mediastinum: There is leftward shift of the mediastinum similar to 06/29/2023. Cardiomediastinal contours are unremarkable. Bones/joints: There is mild broad-based convex left thoracic scoliosis. There are healed left posterolateral 5th and 6th rib fractures. XR/XR chest 1V portable [id number] IMPRESSION: 1. ? No change since 06/29/2023. 2. ? Volume loss in the left hemithorax with opacification of the left lower lung is consistent with complete left lower lobe atelectasis which was partially imaged on abdomen pelvis CT 06/10/2023. ? Critical Care Time Critical Care Time: Critical Care Time: Yes Total Critical Care Time: 65 Attestation: This case had a high probability of a clinically significant, sudden, or life threatening deterioration of this patient's condition which required my full and direct attention, intervention and personal management. Discharge Plan Discharge Patient Disposition: Admitted As Inpatient Admit Provider: Jak Whitaker Clinical Impression: COPD exacerbation, Pulmonary embolism, Community acquired pneumonia Condition: Stable Coding Level of Care Code ED Independent Agent [employer] for [employer]
[2023-07-01 10:27] LABS: ABG PCO2 59.3 mmHg (35-45); ABG PH Result 7.28 (7.35-7.45); Arterial Blood Gas Hematocrit 40.9 % (37-47); Base Excess ABG 0.2 mmol/L (-2.0-2.0); Blood Gas Allen Test Pos; Blood Gas Sample Site Radial, right; Blood Gas Sample Type Arterial; Carboxyhemoglobin 2.5 %THgb (0.4-20.1); HCO3 ABG 28.1 mmol/L (22-26); HGB O2 Sat 80.7 % (95-100); Methemoglobin 0.6 % (0.4-1.5); Oxygen Device SIMPLE MASK; PO2 ABG 50.4 mmHg (80.0-100.0); Total Hemoglobin 13.4 g/dL (12-16)
[2023-07-01] MEDS: methylPREDNISolone sod succ 60 MG in water for injection-sterile 0.96 ML 11.52 MG IVP (10:33)
[2023-07-01 10:37] LABS: Basophils % 0.2 %; Hematocrit 38.9 % (36-47); Lymphocytes # 0.6 10^3/uL (0.8-4.8); Lymphocytes % 2.8 %; Mean Corpuscular HGB Conc 33.9 g/dL (30-55); Mean Corpuscular Hemoglobin 30.3 pg (27-33); Mean Corpuscular Volume 89.2 fl (85-98); Mean Platelet Volume 9.4 fL (7.4-10.4); Monocytes # 1.2 10^3/uL (0.2-0.9); Monocytes % 5.7 %; Neutrophils # 18.89 10^3/uL (1.8-7.7); Neutrophils % 90.8 %; Nucleated Red Blood Cells % 0 %; Platelet Count 397 10^3/cmm (157-399); Red Blood Count 4.36 10^6/uL (3.85-5.65); Red Cell Distribution Width 12.1 % (12.1-15.1); White Blood Count 20.81 10^3/uL (3.29-11.43)
[2023-07-01 10:50] LABS: INR 0.91 (0.8-1.2)
[2023-07-01 10:57] LABS: Lactic Sepsis W/Reflex 1.8 mmol/L (0.5-2.2)
[2023-07-01 10:57] LABS: Troponin(5th) Baseline 33 ng/L (0-10)
[2023-07-01 11:01] LABS: Influenza A by IFA negative (Negative); Influenza B by IFA negative (Negative); SARS Covid-2 Antigen negative (Negative)
[2023-07-01] MEDS: albuterol 2.5 mg/3 mL Neb 10 MG INHALATION (11:10)
[2023-07-01 11:11] LABS: Alanine Aminotransferase 22 U/L (0-33); Albumin Level 4.7 g/dL (3.5-5.2); Alkaline Phosphatase 100 U/L (35-105); Anion Gap 16.7 (5-19); Aspartate Amino Transferase 30 U/L (0-32); Blood Urea Nitrogen 8 mg/dL (8-23); Calcium 9.4 mg/dL (8.5-10.5); Carbon Dioxide 25 mmol/L (22-29); Chloride 81 mmol/L (98-107); Globulin 2.8 g/dL (1.3-4.6); Glomerular Filtration Rate 157.8 mL/min (90-130); Glucose 160 mg/dL (65-115); NT Pro B Type Natriuretic Pept 722 pg/mL (0-125); Osmolality Calculated 250 mOsm/kg (285-295); Potassium 3.7 mmol/L (3.5-5.1); Total Bilirubin 0.8 mg/dL (0.15-1.2); Total Protein 7.5 g/dL (6.6-8.7)
--- NOTE | 2023-07-01 11:11 | PC.PHAR ---
pt unable to verify all her meds-[facility]-medications entered are what shows that has been filled recently on ext med history-
[2023-07-01 11:13] LABS: Sodium 119 mmol/L (136-145)
[2023-07-01 11:46] LABS: ABG PH Result 7.32 (7.35-7.45); Alveolar-Arterial Oxygen Gradi 57.6 mmHg (5-10); Arterial Blood Gas Hematocrit 41.7 % (37-47); Base Excess ABG 0.3 mmol/L (-2.0-2.0); Blood Gas Allen Test Pos; Blood Gas Sample Site Radial, left; Blood Gas Sample Type Arterial; Carboxyhemoglobin 1.6 %THgb (0.4-20.1); HCO3 ABG 27.3 mmol/L (22-26); HGB O2 Sat 98.5 % (95-100); Ionized Calcium Level - ABG 1.2 mmol/L (1.1-1.4); Methemoglobin 0.3 % (0.4-1.5); Oxygen Device BIPAP; Oxygen Saturation ABG > 100.0; Potassium Level - ABG 3.5 mmol/L (3.5-5.0); Total Hemoglobin 13.6 g/dL (12-16)
--- NOTE | 2023-07-01 12:08 | P.HP_ITS ---
Providers/Chief Complaint Primary Care Provider: [place] [facility] Chief Complaint: SOB History of Present Illness Geno Dimas is a 68 year old femal, Lives alone and was seen in the hospital about 2 weeks ago, she was given IV fluids for hyponatremia which was thought to be related to dehydration, presenting today with chief complaint worsening of shortness of breath, patient is stating that she does not use oxygen at home, smokes on daily basis, does not drink alcohol, for last 2 to 3 days has been experiencing shortness of breath today her chest were getting tight that brought her to the hospital. She was put on BiPAP because of her significant hypoxia and labored breathing. She is not complaining of any active chest pain, currently on BiPAP settings 20/04, requested nephro consultation to see if patient would need hypertonic saline bolus Started patient on Precedex because she is very anxious and tachycardic, telemetry showing sinus tachycardia Review of Systems Const: Reports: chills Eyes: Denies: change in vision ENMT: Denies: throat pain Card: Denies: chest pain Resp: Reports: dyspnea GI: Denies: abdominal pain : Denies: flank pain Musc: Denies: neck pain Skin/Breast: Denies: rash Neuro: Denies: headache(s) Psych: Reports: anxiety Medications/Allergies Home Medications Medication Instructions Recorded Confirmed Last Taken Type amlodipine 5 mg tablet 5 mg PO DAILY #90 tabs 06/12/23 07/01/23 Unknown Rx sodium chloride 1,000 mg soluble 1 g PO BID #30 tabs 06/12/23 07/01/23 Unknown Rx tablet polyethylene glycol 3350 17 17 g PO BID 07/01/23 07/01/23 Unknown History gram/dose oral powder (ClearLax) Allergies Allergy/AdvReac Type Severity Reaction Status Date / Time bupropion [From Wellbutrin] Allergy ADR-Irritab Verified 06/29/23 11:00 le nitrofurantoin Allergy ADR-Gastrointestinal Verified 06/29/23 11:00 [From Macrodantin] Upset tetracycline Allergy Unknown Verified 06/29/23 11:00 PFSH Acute PFSH: Medical History (Updated 07/01/23 @ 13:19 by Deidre Whitaker MD) Acute hyponatremia No pertinent past medical history Surgical History History of appendectomy History of hysterectomy Family History Other No pertinent family history Social History Smoking and tobacco/nicotine status: never used tobacco/nicotine Alcohol intake: never Substance/Drug Use: never Vitals/I&O/Wt Last Vital Signs Temp 97.4 F L 07/01/23 09:58 Pulse 101 H 07/01/23 11:06 Resp 24 H 07/01/23 11:06 BP 158/106 07/01/23 11:06 Pulse Ox 96 07/01/23 11:06 O2 Del Method BiPAP 07/01/23 11:06 O2 Flow Rate 6 07/01/23 09:58 FiO2 100 07/01/23 11:06 Weight last 48 hrs Weight 50.802 kg Physical Exam Narrative: elderly thin frail female Currently on BiPAP Anxious appearing Tachycardic No signs of fluid overload Bilateral assisted breath sounds Anticipating S1, S2 sinus tachycardia Abdomen soft GCS 15 Nonfocal neuro exam Data 07/01/23 10:00 07/01/23 10:00 A&P Assessment and plan (1) Chronic hyponatremia: (2) COPD exacerbation: (3) Malnourished: (4) Tachycardia: Plan Left-sided pneumonia COPD exacerbation due to active smoking and pneumonia Start on antibiotics request sputum culture DuoNeb treatment Request CTA chest rule out PE Requested D-dimer Patient is tachycardic Add Precedex with BiPAP Repeat ABG patient states that in case of any worsening she does not want to be intubated she is able to make decision for self, stating that she is actively smoking, lives alone Chronic hyponatremia On last admission her sodium was 123, currently 119, no active signs of seizure We will consult nephro She probably will need hypertonic saline We will request urine studies, urine sodium, urine and serum osmolarity, TSH, uric acid We will request PICC line Malnourished BNP is 700, clinically does not look to be in fluid overload state, will request echo DNR/DNI Regular diet Admit to ICU Spoke with the nephro and ER physician, requesting repeat ABG, patient was seen twice in the ER Attestations Medical Necessity Statement*: >Greater than 2 midnights anticipated for management of hyponatremia, pneumonia Coding Level of Care Code Critical Care >/= 30 minutes Critical care time (in minutes): 40 The high probability of a clinically significant, sudden or life threatening deterioration, as referenced in this documentation, required my full and direct attention, intervention and personal management. The critical care time shown is in addition to time spent performing any reported separately billable procedures and includes the following: [x] Data and vital sign review and interpretation [x ] Patient assessment, examination and intervention [x] Medication orders and management [x] Patient/Family updates as able [x] Care Coordination and Documentation. Diagnoses Chronic hyponatremia E87.1 COPD exacerbation J44.1 Malnourished E46 Tachycardia R00.0
--- NOTE | 2023-07-01 12:14 | ECG_ITS ---
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 Measurements Intervals [place] Rate: 96 P: 71 NV: 177 QRS: -75 QRSD: 98 T: 70 QT: 338 QTc: 429 Interpretive Statements SINUS RHYTHM POSSIBLE LEFT ATRIAL ENLARGEMENT [-0.1mV P-WAVE IN V1/V2] PATTERN CONSISTENT WITH PULMONARY DISEASE INCOMPLETE RIGHT BUNDLE BRANCH BLOCK [90+ ms QRS DURATION, TERMINAL R IN V1/V2, 40+ ms S IN I/aVL/V4/V5/V6] LEFT ANTERIOR FASCICULAR BLOCK [QRS AXIS <= -45, QR IN I, RS IN II] MODERATE ST DEPRESSION [0.05+ mV ST DEPRESSION] Compared to ECG 07/01/2023 10:04:26 ST (T wave) deviation now present Myocardial infarct finding no longer present Electronically Signed On 07-01-2023 12:32:31 CDT by Tong Coffey M.D. [id number]
[2023-07-01 12:15] LABS: Troponin 5 2HR 55.16 ng/L (0-10)
[2023-07-01 12:18] LABS: Troponin 5 2HR Delta 22.16 ABS# (0-10)
[2023-07-01] MEDS: cefTRIAXone 2,000 MG in sodium chloride 0.9% (plus) 50 ML 100 MG IV (12:27)
[2023-07-01 12:42] LABS: Uric Acid 2.3 mg/dL (2.4-5.7)
[2023-07-01 12:43] LABS: D Dimer 6.94 ug/mLFEU (0-0.59)
--- NOTE | 2023-07-01 13:14 | CTR_ITS ---
PROCEDURE INFORMATION: Exam: CTA Chest With Contrast Exam date and time: 07/01/2023 1:49 PM Age: 68 years old Clinical indication: Hyperventilation; Additional info: Hypoxia TECHNIQUE: Imaging protocol: Computed tomographic angiography of the chest with contrast. Exam focused on the arteries. 3D rendering (Not supervised by radiologist): MIP and/or 3D reconstructed images were created by the technologist. Radiation optimization: All CT scans at this facility use at least one of these dose optimization techniques: automated exposure control; mA and/or kV adjustment per patient size (includes targeted exams where dose is matched to clinical indication); or iterative reconstruction. Contrast material: OMNI 350; Contrast volume: 67 ml; Contrast route: INTRAVENOUS (IV); REPORTING DATA: Count of CT and Cardiac NM exams in prior 12 months: This patient has received 3 known CTs and 0 known cardiac nuclear medicine studies in the 12 months prior to the current study. COMPARISON: 1. CR (CHEST, ) 07/01/2023 10:[address] abdomen pelvis wo con [id number] 06/10/2023 2:37 AM RADIATION DOSE METRICS: Total DLP (mGy-cm): 119.72 FINDINGS: Pulmonary arteries: There are incompletely occlusive filling defect in the central right upper lobe pulmonary arteries, partially obscured by motion artifact. The finding is most apparent on axial series 7 image 188 through 197. The right lower lobe vessels are predominantly obscured by respiratory motion artifact. There is multifocal pulmonary arterial narrowing on the left as it traverses a mediastinal mass, involving the distal left pulmonary artery, left lower lobe and lingular arteries. Aorta: There is moderate aortic atherosclerotic disease. Veins: There is contrast reflux into the IVC and hepatic veins. Lungs: The left lower lobe bronchus is occluded. There is mild dependent coarse reticular opacity in the right lower lobe suggesting atelectasis. There is an 8 mm noncalcified irregular pulmonary nodule in the left upper lobe on axial series 7, image 104. There is complete atelectasis of the left lower lobe. Pleural spaces: There is no pleural effusion or pneumothorax. Heart: Heart size is normal. There is no pericardial effusion. Heart RV/LV ratio: RV/LV ratio is 0.7 (normal) Coronary arteries: There is moderate coronary artery calcification. Mediastinal space: There is a confluent middle and posterior mediastinal and left hilar mass measuring approximately 10.4 x 8.2 x 5.6 cm. The mass extends into the upper posterior mediastinum and left hilum. The mass is poorly defined and circumferentially involves the manpreet and proximal mainstem bronchi bilaterally. The left lower lobe bronchus is occluded. Lymph nodes: No discrete mediastinal lymph nodes are measurable, as they are obscured by mediastinal mass. Adrenal glands: There is a 3.5 x 3.2 cm left adrenal mass. Kidneys and ureters: There is a 2.9 x 2.8 cm exophytic anterior left upper pole renal mass which is intimately associated with the adrenal mass. Bones/joints: There are healed fractures of left posterior 6th through 10th ribs. No acute fracture. Moderate thoracolumbar scoliosis. Age-indeterminate compression fractures at L4, L3, L2, L1, T12, T10, T9, T8, T7, and T6. No suspicious bone lesions. Soft tissues: The extrathoracic soft tissues are unremarkable. There are intact bilateral subpectoral saline breast implants. CT/CT angio chest PE protcl [id number] IMPRESSION: 1. Right upper lobe pulmonary embolism. 2. Mediastinal and left hilar mass occluding the left main bronchus is consistent with a malignant neoplasm. 3. Complete left lower lobe atelectasis. 4. 8 mm suspicious nodule in the left upper lobe. Possible metastasis. 5. Left adrenal mass. Probable metastasis. 6. Mass involving the upper pole of the left kidney. Nonspecific. Possible primary renal tumor versus extension of the adrenal mass to involve the kidney. 7. Extensive thoracolumbar compression fractures of indeterminate age. 8. Incidental findings above. COMMENTS: Consistent with the [place] [employer]'s Incidental Findings Committee white paper (J Am Karolyn Radiol 2018): Any incidental renal lesion less than 1 cm or classified as too small to characterize, or any incidental cystic renal lesion characterized as simple-appearing, is likely benign. No follow-up imaging is recommended for these lesions per consensus recommendations based on imaging criteria.
[2023-07-01 13:39] LABS: ABG PCO2 49.7 mmHg (35-45); ABG PH Result 7.33 (7.35-7.45); Arterial Blood Gas Hematocrit 40.5 % (37-47); Base Excess ABG -0.6 mmol/L (-2.0-2.0); Blood Gas Sample Site Brachial, left; Blood Gas Sample Type Arterial; Oxygen Device BIPAP; PO2 ABG 93.7 mmHg (80.0-100.0)
--- NOTE | 2023-07-01 14:01 | PC.NURSE ---
report given to Ramandeep THEODORE ICU
[2023-07-01] MEDS: dexmedetomidine 400 MCG in sodium chloride 0.9% (100 ml) 100 ML IV (14:24)
[2023-07-01] MEDS: cefepime 2,000 MG in sodium chloride 0.9% (plus) 50 ML 100 MG IV (14:42)
[2023-07-01] MEDS: sodium chloride 0.9% 1,000 ML 75 ML IV (14:42)
[2023-07-01] MEDS: enoxaparin 100 mg/mL Syringe 50 MG SUBCUT (14:42)
[2023-07-01] MEDS: piperacillin-tazobactam 3.375 GM in sodium chloride 0.9% (plus) 50 ML IV (14:42)
[2023-07-01 14:56] LABS: Thyroid Stimulating Hormone 0.94 uIU/mL (0.27-4.20); Vitamin B12 832 pg/mL (232-1245)
--- NOTE | 2023-07-01 16:01 | PC.PT ---
Nursing requests hold ude to unstable status of patient. THey request to return back in 24 hours to see if status has improved.
[2023-07-01 16:05] LABS: Troponin 5 6HR 70.74 ng/L (0-10)
[2023-07-01 16:07] LABS: Troponin 5 6HR Delta 37.74 ng/L (0-12)
[2023-07-01] MEDS: ipratropium-albuterol 3 mL Neb INHALATION (16:29)
--- NOTE | 2023-07-01 16:35 | ECG_ITS ---
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 Measurements Intervals [place] Rate: 83 P: 79 GA: 191 QRS: -71 QRSD: 110 T: 61 QT: 369 QTc: 436 Interpretive Statements SINUS RHYTHM WITH OCCASIONAL VENTRICULAR PREMATURE COMPLEXES POSSIBLE LEFT ATRIAL ENLARGEMENT [-0.1mV P-WAVE IN V1/V2] INCOMPLETE RIGHT BUNDLE BRANCH BLOCK [90+ ms QRS DURATION, TERMINAL R IN V1/V2, 40+ ms S IN I/aVL/V4/V5/V6] LEFT ANTERIOR FASCICULAR BLOCK [QRS AXIS <= -45, QR IN I, RS IN II] ANTEROSEPTAL MYOCARDIAL INFARCTION , AGE INDETERMINATE Compared to ECG 07/01/2023 12:14:56 Ventricular premature complex(es) now present Myocardial infarct finding now present ST (T wave) deviation no longer present Electronically Signed On 07-02-2023 7:39:17 CDT by Tong Coffey M.D. [email or web address]
[2023-07-01] MEDS: morphine 4 mg/mL SDV 1 mL 2 MG IVP (17:44)
[2023-07-01 17:46] LABS: Anion Gap 15.6 (5-19); Blood Urea Nitrogen 10 mg/dL (8-23); Calcium 9.2 mg/dL (8.5-10.5); Carbon Dioxide 25 mmol/L (22-29); Chloride 81 mmol/L (98-107); Glomerular Filtration Rate 98.8 mL/min (90-130); Glucose 193 mg/dL (65-115); Osmolality Calculated 250 mOsm/kg (285-295); Potassium 3.6 mmol/L (3.5-5.1)
[2023-07-01 17:49] LABS: Sodium 118 mmol/L (136-145)
[2023-07-01] MEDS: LORazepam 2 mg/mL INJ 1 mL IVP (17:57)
[2023-07-01] MEDS: morphine 4 mg/mL SDV 1 mL IVP ×6 (17:58→23:17)
[2023-07-01] MEDS: glycopyrrolate 0.2 mg/mL SDV 2 mL IV (18:22)
[2023-07-01] MEDS: scopolamine 1.5 Patch 1 PATCH TRANSDERMA (18:59)
[2023-07-01] MEDS: atropine 1% op soln 2 mL Btl 3 DROP SUBLINGUAL (19:16)
--- NOTE | 2023-07-01 19:18 | PC.NURSE ---
Questions from Support Persons: Answered questions from support persons at bedside regarding pts pain and breathing. We discussed medication options and if they felt they wanted to stay overnight. Support persons expressed that they just want her to pass peacefully and to give her medication if she is hurting. They are unsure if they will be spending the night.
[2023-07-01] MEDS: blistex lip oint 7 gm Tube 1 APPLIC TOPICAL (20:56)
--- NOTE | 2023-07-01 21:54 | PC.NURSE ---
Valentine (support person) called unit to check on pt. Valentine requested us to call her if the pts condition worsens and to please keep her comfortable .
[2023-07-02] VITALS (11 sets, daily range): BP systolic 67–75; BP diastolic 46; PULSE 0–96; RESP 0–30; O2SAT 85–95
[2023-07-02] MEDS: morphine 4 mg/mL SDV 1 mL IVP ×2 (00:24→01:51)
[2023-07-02] MEDS: dexmedetomidine 400 MCG in sodium chloride 0.9% (100 ml) 100 ML 9.25 MCG IV (00:24)
[2023-07-02] MEDS: glycopyrrolate 0.2 mg/mL SDV 2 mL IV (00:25)
[2023-07-02] MEDS: atropine 1% op soln 2 mL Btl 3 DROP SUBLINGUAL (01:53)
--- NOTE | 2023-07-02 02:56 | PC.NURSE ---
Addendum entered by Brianna Chase RN 07/02/23 04:56: TOD verified via 2 minute HR check. Addendum entered by Brenda Hernandez RN 07/02/23 04:52: Witnessed precedex waste. Original Note: TOD 0202: Two minute verification done by Maritza Quinn, RN and Kristyn Chase RN. Dr. Pace notified @0208. Josseline Giles (support person) called @0211. Confirmed [facility] for body transfer. [facility] called @0227. Spoke w/ Ruby Payan [facility] released body. Referral Number: [id number]. Post mortem care completed @ approximately 0245. Approximately 100ml of Precedex wasted w/ ARBEN Morris. [facility] called unit @0307. Eufemia Víctor released body from [facility]. [facility] called @0328, spoke w/ Marcello and confirmed that a account retention representative will be heading to hospital shortly.
--- NOTE | 2023-07-02 07:00 | P.DES_ITS ---
Discharge Providers DDS Date of Admission: 07/01/23 12:10 Date Summary Completed: 07/03/23 Attending Provider at Admission: Deidre Whitaker MD Attending Provider at Discharge: Deidre Whitaker MD Primary Care Provider: [facility] Diagnoses Hospital Diagnoses (1) Chronic hyponatremia: (2) COPD exacerbation: (3) Malnourished: (4) Tachycardia: Reason for Visit Reason for Visit SOB Summary Summary Summary: 76 YO female who lives alone, carries history of COPD, active smoker, was admitted for management evaluation of worsening hypoxia sinus tachycardia, she was put on BiPAP, patient was struggling to breathe on her own we discussed potential intubation however she was against intervention, there was no family, her friend who is her medical DPOA was requested to be at the bedside, her CT scan of chest was requested with angiogram which showed PE and lung cancer with postobstructive pneumonia, this was conveyed to the patient and her friend, patient decided to use BiPAP for a while however she was failing miserably and did not allow us to intubate her, she agreed for hospice/comfort care in the hospital, her friend/medical DPOA was at the bedside. Please note she was recently discharged from the hospital about 2 weeks ago when adrenal mass was identified, she was seen multiple times in the ER for worsening of symptoms and was discharged home after management & evaluation in the ER. Additional Data Confirmation of as documented by pronouncing clinician: no pulse, no respirations, no heart sounds and pupils fixed and dilated Family: at bedside Additional persons at bedside: nursing staff Attending/PCP notified?: I am attending Was code activated?: No Autopsy requested?: No Advance directives?: No ([place] to ask at this time) Hospice patient?: Yes Discharge Plan Discharge Patient Disposition: At Medical Facility Condition: Stable Prescriptions: No Action sodium chloride 1,000 mg Tablet,Soluble 1 g PO BID Qty: 30 0RF Rx Instructions: for 15 days (rx filled 06/12/23) amlodipine 5 mg tablet 5 mg PO DAILY Qty: 90 0RF ClearLax 17 gram/dose powder 17 g PO BID Rx Instructions: for 15 days (rx filled 06/12/23 Referrals: [facility] [Primary Care Provider] - Attestations Time Spent in /Discharge Care*: less than 30 min Quality - AMI: AMI present?: No Quality - Stroke: CVA present?: No Quality - VTE: VTE present?: No Coding Level of Care Code Acute Code for Chg Fwd Diagnoses Chronic hyponatremia E87.1 COPD exacerbation J44.1 Malnourished E46 Tachycardia R00.0
[2023-07-02 16:45] LABS: Osmolality Serum 252 mOsm/kg (278-305)
== END 2023-07-02 04:30 | disposition expired | DRG 190 ==
LOC: ER 10:20 → ICU 12:21
PROVIDERS: Hospitalist; Admitting Provider Internal Medicine; Emergency Provider Internal Medicine; Visit Provider Internal Medicine
DX: J44.1 Chronic obstructive pulmonary disease with (acute) exacerbation (principal); I26.99 Other pulmonary embolism without acute cor pulmonale; J18.9 Pneumonia, unspecified organism; E87.1 Hypo-osmolality and hyponatremia; C34.12 Malignant neoplasm of upper lobe, left bronchus or lung; C79.72 Secondary malignant neoplasm of left adrenal gland; E46 Unspecified protein-calorie malnutrition; F17.210 Nicotine dependence, cigarettes, uncomplicated; J44.0 Chronic obstructive pulmonary disease with (acute) lower respiratory infection; R00.0 Tachycardia, unspecified; Z66 Do not resuscitate; Z51.5 Encounter for palliative care; R09.02 Hypoxemia
CPT/HCPCS: 36415; 36600; 71045; 71275; 80048; 80051; 80053; 82330; 82607; 82803; 82805; 83605; 83880; 83930; 84443; 84484; 84550; 85025; 85378; 85610; 87040; 87426; 87804; 93005; 94640; 94660; 96365; 96367; 96372; 96375; 99291; J0692; J0696; J1650; J2060; J2270; J2543; J2930; J3490; J7030; J7613; Q3014